=== PATIENT | female | born 1965 ===

== ENCOUNTER 2016-09-03 11:46 | Emergency (ER) | payer OTHER ==
[2016-09-03 11:55] VITALS: BMI 36.7
[2016-09-03 11:56] VITALS: BP 148/83; PULSE 64; RESP 18; TEMP 98; O2SAT 99
== END 2016-09-03 13:47 | disposition left against medical advice (07) ==
LOC: C.ER 11:46
DX: R11.10 Vomiting, unspecified (principal); R51 Headache; Z02.9 Encounter for administrative examinations, unspecified
CPT/HCPCS: 99285; LWBS0

== ENCOUNTER 2016-11-03 17:53 | Emergency (ER) | payer OTHER, MEDICAID ==
[2016-11-03 18:01] VITALS: BMI 35.3
[2016-11-03] MEDS ORDERED: Oxycodone/Acetaminophen 5/325 mg Tab PO STA (19:28)
[2016-11-03] MEDS ORDERED: Oxycodone/Acetaminophen 5/325 mg Tab ONE (19:33)
[2016-11-03 19:42] LABS: SQUAMOUS EPITHIAL 1 /hpf (0-5); URINE BACTERIA MOD (<OCC); URINE BILIRUBIN NEGATIVE (NEGATIVE); URINE BLOOD NEGATIVE (NEGATIVE); URINE CLARITY Hazy (Clear); URINE COLOR Yellow (YELLOW); URINE GLUCOSE (UA) NORMAL (Normal); URINE LEUKOCYTE ESTERASE 3+ Leu/uL (Negative); URINE NITRATE NEGATIVE (NEGATIVE); URINE PROTEIN NEGATIVE (NEGATIVE); URINE UROBILINOGEN NORMAL mg/dL (0.2-1.0)
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
[2016-11-03 21:00] VITALS: BP 112/70; PULSE 53; RESP 18; TEMP 97.4
[2016-11-03 21:47] VITALS: O2SAT 100
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
== END 2016-11-03 22:28 | disposition home or self-care (01) ==
LOC: C.ER 17:53
DX: N39.0 Urinary tract infection, site not specified (principal); S39.011D Strain of muscle, fascia and tendon of abdomen, subsequent encounter; V89.2XXD Person injured in unspecified motor-vehicle accident, traffic, subsequent encounter

== ENCOUNTER 2017-04-11 11:02 | Inpatient (IN) | payer OTHER ==
[2017-04-11 11:02] VITALS: BMI 35.3
[2017-04-11] MEDS ORDERED: Aspirin 325 mg EC Tablets PO STA (12:04)
[2017-04-11] MEDS ORDERED: Aspirin 325 mg EC Tablets PO ONE (12:11)
[2017-04-11 12:28] LABS: BASO # 0.1 K/uL (0.0-0.2); EOS # 0.1 K/uL (0.0-0.7); EOS % 1.2 % (0.0-4.0); HEMATOCRIT 36.5 % (34.0-47.0); LYMPH % 29.4 % (20.0-40.0); MEAN CELL VOLUME 87.5 fL (81.0-99.0); MEAN CORPUSCULAR HEMOGLOBIN 29.1 pg (27.0-31.0); MEAN CORPUSCULAR HGB CONC 33.3 g/dL (33.0-37.0); MEAN PLATELET VOLUME 10.1 fL (7.2-11.7); MONO # 0.6 K/uL (0.0-0.8); MONO % 5.8 % (0.0-10.0); NRBC % 0.1 % (0.0-2.0); RED CELL DISTRIBUTION WIDTH 13.1 % (11.5-14.5); WHITE BLOOD COUNT 10.2 K/uL (4.8-10.8)
--- NOTE | 2017-04-11 13:24 | RAD ---
Chest x-ray single frontal view History: Chest pain. Comparison: 01/11/2016 Findings: No focal infiltrate or effusion. Heart size within normal limits. Degenerative changes spine. Impression: No focal infiltrate or effusion.
[2017-04-11 13:48] LABS: RBC URINE 2 /hpf (0-3); URINE BACTERIA MANY (<OCC); URINE BILIRUBIN NEGATIVE (NEGATIVE); URINE BLOOD NEGATIVE (NEGATIVE); URINE COLOR Yellow (YELLOW); URINE GLUCOSE (UA) NORMAL (Normal); URINE KETONE NEGATIVE (NEGATIVE); URINE LEUKOCYTE ESTERASE 2+ Leu/uL (Negative); URINE PROTEIN NEGATIVE (NEGATIVE); URINE UROBILINOGEN NORMAL mg/dL (0.2-1.0); WBC URINE 104 /hpf (0-5)
[2017-04-11 14:06] LABS: ALB/GLOB RATIO 0.9 (1.0-2.1); ALKALINE PHOSPHATASE 68 U/L (38-126); ALT/SGPT 30 U/L (9-52); AST/SGOT 25 U/L (14-36); BILIRUBIN,TOTAL 0.4 mg/dL (0.2-1.3); BLOOD UREA NITROGEN 36 mg/dL (7-17); CALCIUM 8.8 mg/dl (8.6-10.4); CARBON DIOXIDE 25 mmol/L (22-30); CHLORIDE 106 mmol/L (98-107); GFR AFRICAN-AMERICAN 28; GLUCOSE,RANDOM 111 mg/dL (65-105); POTASSIUM 4.6 mmol/L (3.6-5.2); SODIUM 139 mmol/L (132-148); TOTAL PROTEIN 7.9 g/dL (6.3-8.3)
[2017-04-11] MEDS ORDERED: Sodium Chloride 0.9% 1,000 ML IV ONE (14:19)
[2017-04-11] MEDS ORDERED: cefTRIAXone IV 1 gm in Dextros 50 ML IV ONE (14:20)
--- NOTE | 2017-04-11 14:34 | C.PDOC ---
History Of Present Illness 51 year old female with a PMHx of HTN and Diabetes presents to the ED with complaints of left sided chest pain for 3 days. Patient reports pain is worse with movement. (+) dysuria (+) urinary frequency (+) h/o UTI frequently. Patient denies trauma, weakness, numbness, shortness of breath, radiation of pain, or other complaints at this time. Time Seen by Provider: 04/11/17 11:35 Chief Complaint (Nursing): Chest Pain History Per: Patient History/Exam Limitations: no limitations Onset/Duration Of Symptoms: Days (3 days) Current Symptoms Are (Timing): Still Present Quality: "Pain" Associated Symptoms: denies: Nausea, Dyspnea, Diaphoresis, Syncope Exacerbating Factors: Movement Recent travel outside of the [place]: No Past Medical History Reviewed: Historical Data, Nursing Documentation, Vital Signs Vital Signs: Last Vital Signs Temp 97.3 F L 04/11/17 18:07 Pulse 76 04/11/17 18:07 Resp 20 04/11/17 18:07 BP 135/86 04/11/17 18:07 Pulse Ox 96 04/11/17 18:07 - Medical History PMH: Diabetes, Graves' Disease, HTN, Hypercholesterolemia, Hyperthyroidism, Osteoporosis, Chronic Kidney Disease Surgical History: Appendectomy - [facility] Procedures CYSTOSCOPY NEC (03/25/04) INJECT/INFUSE ELECTROLYT (12/28/13) INJECT/INFUSE NEC (12/28/13) NEBULIZER THERAPY (12/28/13) URETERAL CATHETERIZATION (03/25/04) Family History: States: Unknown Family Hx - Social History Hx Tobacco Use: No Hx Alcohol Use: No Hx Substance Use: No - Immunization History Hx Tetanus Toxoid Vaccination: Yes Hx Influenza Vaccination: Yes Hx Pneumococcal Vaccination: Yes Review Of Systems Constitutional: Negative for: Fever, Chills Cardiovascular: Positive for: Chest Pain. Negative for: Palpitations Respiratory: Negative for: Cough, Shortness of Breath Gastrointestinal: Negative for: Nausea, Vomiting, Abdominal Pain Neurological: Negative for: Weakness, Numbness Physical Exam - Physical Exam Appears: Non-toxic, No Acute Distress Skin: Warm, Dry, No Rash Head: Atraumatic, Normacephalic, No Tenderness Eye(s): bilateral: Normal Inspection, PERRL, EOMI Nose: Normal Oral Mucosa: Moist Neck: Normal ROM, Supple Chest: Symmetrical, No Deformity, Other (reproducible chest pain with palpation) Cardiovascular: Rhythm Regular, No Murmur Respiratory: No Rales, No Rhonchi, No Wheezing, Other (clear to auscultation bilaterally ) Gastrointestinal/Abdominal: Soft, No Tenderness, No Distention, No Guarding, No Rebound Extremity: Normal ROM, No Tenderness Neurological/Psych: Oriented x3 ED Course And Treatment - Laboratory Results Result Diagrams: 04/11/17 12:24 04/11/17 13:24 ECG: Interpreted By Me, Viewed By Me ECG Rhythm: Sinus Rhythm Rate From EC O2 Sat by Pulse Oximetry: 100 (RA) Pulse Ox Interpretation: Normal Progress Note: EKG, CXR, blood work and labs were ordered. Case was discussed with Dr. Sy who agrees with plan and admission to his services. Disposition - Disposition Disposition: HOSPITALIZED Disposition Time: 18:00 Condition: STABLE - Clinical Impression Clinical Impression: Chest pain, UTI (urinary tract infection), Dehydration, Renal insufficiency - PA / ACCOUNT SERVICES REPRESENTATIVE / Resident Statement MD/DO has reviewed & agrees with the documentation as recorded. - Scribe Statement The provider has reviewed the documentation as recorded by the Scribe Nila Kelly All medical record entries made by the Jama were at my direction and personally dictated by me. I have reviewed the chart and agree that the record accurately reflects my personal performance of the history, physical exam, medical decision making, and the department course for this patient. I have also personally directed, reviewed, and agree with the discharge instructions and disposition.
[2017-04-11] MEDS ORDERED: cefTRIAXone IV 1 gm in Dextros 50 ML IVPB ONE (14:48)
[2017-04-11 18:08] VITALS: RESP 20
[2017-04-11] MEDS ORDERED: Dextrose 5%/0.9% NS 1,000 ML IV ONE (20:24)
--- NOTE | 2017-04-11 20:28 | CP.PCM.HP ---
History of Present Illness - History of Present Illness History of Present Illness: Chief comparison: Left-sided chest pain History of present illness: 51-year-old female with a history of diabetes hypertension renal insufficiency hypercholesteremia recurrent urinary tract infection came to the emergency room with the symptoms of pain of the left-sided chest, almost one-week duration. Patient is having diffuse pain over the left inframammary area, sometimes radiating to the left axillary area. She is also complaining of diffuse pain in the lower back, bilateral legs. She is also combining of left flank pain. Urinary discomfort burning sensation noted. Chills and feverish. Nausea noted. But no vomiting. Patient the past had multiple hospitalization with recurrent urinary tract infection also. Past medical history: Patient has a history of hypertension diabetes hypercholesterolemia renal insufficiency diabetes poorly controlled. Patient also has some worsening renal insufficiency. Venous history. Surgical history none Allergies no drug allergy Personal history: Nonsmoker nonalcoholic, very noncompliance with diet, and medications. Depression also noted. Review of systems: Currently having some dizziness, some headache noted. Denies any nausea now. Headache noted. Complaining of left-sided inframammary pain noted. Abdominal pain noted. Left flank pain noted. Vital signs reviewed No neck vein distention noted Chest good air entry bilaterally, no wheezing or rales noted CVS regular heart sound, no murmur noted Left inframammary tenderness noted over the rib involving possibly the fifth and sixth rib. No redness or swelling noted, no trauma Left flank tenderness noted Abdomen soft, nontender. Extremities no pedal edema FELLER HAND alert awake oriented -3, no functional neurological deficit Patient's labs reviewed Patient's initial blood sugar is on the low side. Chest x-ray nonspecific. EKG nonspecific Assessment and recommendation: 51-year-old female with history of diabetes hypertension hypercholesterolemia renal insufficiency polycystic kidney. Patient also admitted with recurrent urinary tract infection. Currently admitted with urosepsis. Left-sided chest pain, nonspecific, reproducible. Underlying the fracture cannot be ruled out, will get a CT of the chest. Prognosis guarded. Continue to monitor. IV fluid. Computed the renal sonogram and will follow the patient Present on Admission - Present on Admission Any Indicators Present on Admission: No History of DVT/PE: No History of Uncontrolled Diabetes: No Urinary Catheter: No Decubitus Ulcer Present: No Past Patient History - Infectious Disease Hx of Infectious Diseases: None - Tetanus Immunizations Tetanus Immunization: Unknown - Past Medical History & Family History Past Medical History?: Yes - Past Social History Smoking Status: Never Smoked - CARDIAC Hx Hypercholesterolemia: Yes Hx Hypertension: Yes - PULMONARY Hx Respiratory Disorders: No - NEUROLOGICAL Hx Neurological Disorder: No - HEENT Hx HEENT Problems: No - RENAL Hx Chronic Kidney Disease: Yes - ENDOCRINE/METABOLIC Hx Hyperthyroidism: Yes - HEMATOLOGICAL/ONCOLOGICAL Hx Blood Disorders: No - INTEGUMENTARY Hx Dermatological Problems: No - MUSCULOSKELETAL/RHEUMATOLOGICAL Hx Falls: No Hx Osteoporosis: Yes - GASTROINTESTINAL Hx Gastrointestinal Disorders: No - GENITOURINARY/GYNECOLOGICAL Hx Genitourinary Disorders: No - PSYCHIATRIC Hx Substance Use: No - SURGICAL HISTORY Hx Appendectomy: Yes - ANESTHESIA Hx Anesthesia: Yes Hx Anesthesia Reactions: No Hx Malignant Hyperthermia: No Meds Allergies/Adverse Reactions: Allergies Allergy/AdvReac Type Severity Reaction Status Date / Time No Known Allergies Allergy Verified 04/11/17 11:05 Results - Vital Signs Recent Vital Signs: Last Vital Signs Temp 97.3 F L 04/11/17 18:07 Pulse 76 04/11/17 18:36 Resp 20 04/11/17 18:07 BP 135/86 04/11/17 18:07 Pulse Ox 100 04/11/17 18:16 - Labs Result Diagrams: 04/12/17 04:12 04/12/17 04:12 Labs: Laboratory Results - last 24 hr 04/11/17 04/11/17 04/11/17 12:24 13:24 13:24 WBC 10.2 RBC 4.17 Hgb 12.1 Hct 36.5 MCV 87.5 MCH 29.1 MCHC 33.3 RDW 13.1 Plt Count 194 MPV 10.1 Neut % (Auto) 62.6 Lymph % (Auto) 29.4 [place] % (Auto) 5.8 Eos % (Auto) 1.2 Baso % (Auto) 1.0 Neut # 6.4 Lymph # 3.0 [place] # 0.6 Eos # 0.1 Baso # 0.1 Sodium 139 Potassium 4.6 Chloride 106 Carbon Dioxide 25 Anion Gap 12 BUN 36 H Creatinine 2.2 H Est GFR ( Amer) 28 Est GFR (Non-Af Amer) 24 POC Glucose (mg/dL) Random Glucose 111 H Calcium 8.8 Total Bilirubin 0.4 AST 25 ALT 30 Alkaline Phosphatase 68 Troponin I < 0.0120 NT-Pro-B Natriuret Pep 62.3 Total Protein 7.9 Albumin 3.8 Globulin 4.1 H Albumin/Globulin Ratio 0.9 L Urine Color Yellow Urine Clarity Hazy Urine pH 5.0 Ur Specific [place] 1.011 Urine Protein Negative Urine Glucose (UA) Normal Urine Ketones Negative Urine Blood Negative Urine Nitrate Negative Urine Bilirubin Negative Urine Urobilinogen Normal Ur Leukocyte Esterase 2+ H Urine WBC (Auto) 104 H Urine RBC (Auto) 2 Ur Squamous Epith Cells 4 Urine Bacteria Many H 04/11/17 04/11/17 04/11/17 17:00 17:02 17:32 WBC RBC Hgb Hct MCV MCH MCHC RDW Plt Count MPV Neut % (Auto) Lymph % (Auto) [place] % (Auto) Eos % (Auto) Baso % (Auto) Neut # Lymph # [place] # Eos # Baso # Sodium Potassium Chloride Carbon Dioxide Anion Gap BUN Creatinine Est GFR ( Amer) Est GFR (Non-Af Amer) POC Glucose (mg/dL) 47 L 47 L 74 Random Glucose Calcium Total Bilirubin AST ALT Alkaline Phosphatase Troponin I NT-Pro-B Natriuret Pep Total Protein Albumin Globulin Albumin/Globulin Ratio Urine Color Urine Clarity Urine pH Ur Specific [place] Urine Protein Urine Glucose (UA) Urine Ketones Urine Blood Urine Nitrate Urine Bilirubin Urine Urobilinogen Ur Leukocyte Esterase Urine WBC (Auto) Urine RBC (Auto) Ur Squamous Epith Cells Urine Bacteria
[2017-04-12 04:31] LABS: BASO # 0.1 K/uL (0.0-0.2); EOS # 0.2 K/uL (0.0-0.7); EOS % 2.1 % (0.0-4.0); HEMATOCRIT 36.4 % (34.0-47.0); LYMPH # 3.4 K/uL (1.0-4.3); LYMPH % 39.5 % (20.0-40.0); MEAN CELL VOLUME 86.9 fL (81.0-99.0); MEAN CORPUSCULAR HEMOGLOBIN 28.9 pg (27.0-31.0); MEAN CORPUSCULAR HGB CONC 33.3 g/dL (33.0-37.0); MEAN PLATELET VOLUME 9.8 fL (7.2-11.7); MONO # 0.6 K/uL (0.0-0.8); MONO % 6.4 % (0.0-10.0); RED CELL DISTRIBUTION WIDTH 12.9 % (11.5-14.5); WHITE BLOOD COUNT 8.6 K/uL (4.8-10.8)
[2017-04-12 04:52] LABS: ALB/GLOB RATIO 0.9 (1.0-2.1); ALKALINE PHOSPHATASE 67 U/L (38-126); ALT/SGPT 39 U/L (9-52); AST/SGOT 21 U/L (14-36); BILIRUBIN,TOTAL 0.3 mg/dL (0.2-1.3); BLOOD UREA NITROGEN 31 mg/dL (7-17); CALCIUM 8.5 mg/dl (8.6-10.4); CARBON DIOXIDE 25 mmol/L (22-30); CHLORIDE 105 mmol/L (98-107); GFR AFRICAN-AMERICAN 32; GLUCOSE,RANDOM 83 mg/dL (65-105); POTASSIUM 4.1 mmol/L (3.6-5.2); SODIUM 136 mmol/L (132-148); TOTAL PROTEIN 7.6 g/dL (6.3-8.3)
--- NOTE | 2017-04-12 13:15 | CT ---
CT chest without IV contrast Indication: Fracture Technique: Contiguous axial images were obtained through the chest without intravenous contrast enhancement. Sagittal and coronal reconstructions were generated and reviewed. This CT exam was performed using 1 or more of the falling dose reduction techniques: Automated exposure control, adjustment of the MAA and/or kV according to patient size, and/or use of iterative reconstruction technique. Radiation dose (DLP): 807.63 MGy-cm. Comparison: Chest x-ray performed 04/11/17, CT of the abdomen and pelvis without contrast performed 11/03/16 Findings: Visualized portions of the inferior thyroid gland appear unremarkable. The unenhanced mediastinal and hilar vascular structures appear grossly unremarkable. The heart appears within normal limits of size. No focal consolidation. No pleural effusion. No pneumothorax. No suspicious pulmonary nodules measuring greater than 5 mm. Limited visualization of the noncontrast upper abdomen demonstrates multiple bilateral probable renal cysts. Small right hyperdense lesion re-identified. Nonobstructing left renal calculus. Irregularities about the right posterior 9th and 10th ribs appear consistent with nondisplaced fractures ; correlate clinically. Impression: Irregularities about the right posterior 9th and 10th ribs appear consistent with nondisplaced fractures ; correlate clinically. Multiple bilateral probable renal cysts. Additional too small to characterize bilateral renal hypodensities ; statistically likely cysts. Small indeterminate right hyperdense lesion re-identified. Nonobstructing left renal calculus.
--- NOTE | 2017-04-12 18:04 | CARD ---
APPROVED REPORT EXAM: Two-dimensional and M-mode echocardiogram with Doppler and color Doppler. Other Information Quality : GoodRhythm : NSR INDICATION CVA/TIA Chest Pain RISK FACTORS Diabetes 2D DIMENSIONS IVSd0.7 (0.7-1.1cm)LVDd4.3 (3.9-5.9cm) PWd0.9 (0.7-1.1cm)LVDs3.2 (2.5-4.0cm) FS (%) 26.5 %LVEF (%)52.1 (>50%) M-Mode DIMENSIONS RVDd2.00 (2.1-3.2cm)Left Atrium (MM)4.07 (2.5-4.0cm) IVSd0.97 (0.7-1.1cm)Aortic Root3.01 (2.2-3.7cm) LVDd4.74 (4.0-5.6cm)Aortic Cusp Exc.2.03 (1.5-2.0cm) PWd1.03 (0.7-1.1cm)FS (%) 26 % LVDs3.49 (2.0-3.8cm)LVEF (%)51 (>50%) Mitral Valve MV E Xoymjspp52.5cm/sMV A Durdcxfu37.7cm/sE/A ratio0.7 TDI E/Lateral E'0.0E/Medial E'0.0 Tricuspid Valve TR Peak Etchxwpf744lb/sTR Peak Gr.[id number] LEFT VENTRICLE The left ventricle is normal size. There is normal left ventricular wall thickness. The left ventricular function is normal. The left ventricular ejection fraction is within the normal range. about 65% No regional wall motion abnormalities noted. The left ventricular diastolic function is indeterminate No left ventricle thrombus noted on this study. There is no ventricular septal defect visualized. There is no left ventricular aneurysm. There is no mass noted in the left ventricle. RIGHT VENTRICLE The right ventricle is normal size. There is normal right ventricular wall thickness. The right ventricular systolic function is normal. ATRIA The left atrium size is normal. The right atrium size is normal. The interatrial septum is intact with no evidence for an atrial septal defect. AORTIC VALVE The aortic valve is normal in structure and function. No aortic regurgitation is present. There is no aortic valvular stenosis. There is no aortic valvular vegetation. MITRAL VALVE The mitral valve is normal in structure and function. There is no evidence of mitral valve prolapse. There is no mitral valve stenosis. There is no mitral valve regurgitation noted. TRICUSPID VALVE The tricuspid valve is normal in structure and function. There is no tricuspid valve regurgitation noted. There is no tricuspid valve prolapse or vegetation. There is no tricuspid valve stenosis. PULMONIC VALVE The pulmonary valve is normal in structure and function. There is no pulmonic valvular regurgitation. There is no pulmonic valvular stenosis. GREAT VESSELS The aortic root is normal in size. The ascending aorta is normal in size. The pulmonary artery is normal. The IVC is normal in size and collapses >50% with inspiration. PERICARDIAL EFFUSION The pericardium appears normal. There is no pleural effusion. <Conclusion> Normal left ventricualr systolic function. Normal Doppler.
--- NOTE | 2017-04-12 18:30 | CARD ---
APPROVED REPORT EKG Measurement Heart [id number] <Conclusion> Normal sinus rhythm Normal ECG
--- NOTE | 2017-04-12 23:25 | CP.PCM.PN ---
Subjective - Date & Time of Evaluation Date of Evaluation: 04/12/17 Time of Evaluation: 23:24 - Subjective Subjective: Patient is still having the pain over the left lower rib cage region. Severe tenderness noted. Sugar is elevated. Blood pressure is elevated. No nausea vomiting, feeling otherwise okay Vital signs reviewed No neck vein distention noted Chest good air entry bilaterally, no wheezing or rales noted CVS regular heart sound, no murmur noted Abdomen soft, nontender. Extremities no pedal edema OIL GAUGER alert awake oriented -3, no functional neurological deficit CT of the chest showing evidence of nondisplaced fracture involving the ninth and 10th rib but it's on the right side. Patient has a symptoms on the left side. Assessment compression: 51-year-old female admitted to the hospital with left-sided hip cage pain. Likely contusion of the chest. Refracture likely. No treatment. Supportive care. Glucose control. With the renal sonogram tomorrow. Patient can be discharged home after that Objective - Vital Signs/Intake and Output Vital Signs (last 24 hours): Temp Pulse Resp BP Pulse Ox 98.1 F 64 20 123/73 96 04/12/17 15:00 04/12/17 16:21 04/12/17 15:00 04/12/17 15:00 04/12/17 15:00 - Medications Medications: Current Medications Heparin Sodium (Porcine) (Heparin) 5,000 units SC Q8 [facility] Last Admin: 04/12/17 21:06 Dose: 5,000 units Ceftriaxone Sodium 1 gm/ (Dextrose) 100 mls @ 100 mls/hr IVPB DAILY [facility] Last Admin: 04/12/17 10:42 Dose: 100 mls/hr Pantoprazole Sodium (Protonix Inj) 40 mg IVP DAILY [facility] Last Admin: 04/12/17 10:42 Dose: 40 mg - Labs Labs: 04/12/17 04:12 04/12/17 04:12
[2017-04-13] MEDS ORDERED: GlipiZIDE 2.5 mg Tab PO SCH (07:30)
--- NOTE | 2017-04-13 13:46 | US ---
PROCEDURE: Ultrasound of the Kidneys HISTORY: polycystic kidney COMPARISON: None available. TECHNIQUE: Sonogram of the kidneys. FINDINGS: RIGHT KIDNEY: Measures: 12.0 cm. Diffusely increased cortical echogenicity. Multiple cysts consistent with known polycystic kidney disease. No solid mass. Upper pole cyst with thin septation versus adjacent smaller cyst, 4.7 x 4.2 x 4.0 cm. Lower pole cyst, 2.6 x 3.1 x 2.7 cm. No calculus or hydronephrosis. LEFT KIDNEY: Measures: 10.7 cm. Diffusely increased cortical echogenicity. Multiple simple cysts. Upper pole cyst, 3.2 x 3.4 x 3.4 cm. No solid mass. Please note that left lower pole renal calculus on CT examination of 11/03/2016 is not identified on this examination. No hydronephrosis. OTHER FINDINGS: None. IMPRESSION: Findings consistent with known polycystic kidney disease. No suspicious mass. Calculus in lower pole on CT examination of 11/03/2016 is not identified.
[2017-04-13 16:27] VITALS: BP 115/75; PULSE 67; TEMP 98; O2SAT 98
== END 2017-04-13 22:34 | disposition home or self-care (01) | DRG 280 ==
LOC: C.ER 11:02 → C.9E 14:20 → OBSVTOIN 14:20 → C.6T 16:39
PROVIDERS: ADMIT Internal Medicine; ATTEND Internal Medicine
DX: S20.219A Contusion of unspecified front wall of thorax, initial encounter (principal); E05.90 Thyrotoxicosis, unspecified without thyrotoxic crisis or storm; E11.22 Type 2 diabetes mellitus with diabetic chronic kidney disease; E11.65 Type 2 diabetes mellitus with hyperglycemia; N39.0 Urinary tract infection, site not specified; E86.0 Dehydration; N18.9 Chronic kidney disease, unspecified; E05.00 Thyrotoxicosis with diffuse goiter without thyrotoxic crisis or storm; Z91.11 Patient's noncompliance with dietary regimen; I12.9 Hypertensive chronic kidney disease with stage 1 through stage 4 chronic kidney disease, or unspecified chronic kidney disease; X58.XXXA Exposure to other specified factors, initial encounter

== ENCOUNTER 2017-09-29 18:14 | Inpatient (IN) | payer MEDICAID, OTHER ==
[2017-09-29 18:14] VITALS: BMI 35.3
[2017-09-29] MEDS ORDERED: Sodium Chloride 0.9% 1,000 ML IV STA (19:39)
--- NOTE | 2017-09-29 19:42 | C.PDOC ---
History Of Present Illness Patient is a 51 y/o female, with a Hx of arthritis, who presents to the ED with a complaint of right sided back pain for the last 5 days. Per daughter, patient was seen at [facility] 2 days ago and was discharged with Tylenol for muscular pain. Daughter states pain persists, prompting ED visit. Daughter denies any dysuria, vomiting, or allergies to medications. No other physical complaints at this time. 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) History/Exam Limitations: no limitations Onset/Duration Of Symptoms: Days (5 ) Current Symptoms Are (Timing): Still Present Exacerbating Factor(s): Movement Recent travel outside of the [place]: No Past Medical History Reviewed: Historical Data, Nursing Documentation, Vital Signs Vital Signs: Last Vital Signs Temp 97.8 F 09/29/17 22:01 Pulse 55 L 09/29/17 22:01 Resp 18 09/29/17 22:01 BP 147/83 09/29/17 22:01 Pulse Ox 99 09/29/17 22:28 - Medical History PMH: Arthritis, Diabetes, Graves' Disease, HTN, Hypercholesterolemia, Hyperthyroidism, Osteoporosis, Chronic Kidney Disease Denies: Depression Surgical History: Appendectomy - [facility] Procedures CYSTOSCOPY NEC (03/25/04) INJECT/INFUSE ELECTROLYT (12/28/13) INJECT/INFUSE NEC (12/28/13) NEBULIZER THERAPY (12/28/13) URETERAL CATHETERIZATION (03/25/04) Family History: States: No Known Family Hx - Social History Hx Tobacco Use: No Hx Alcohol Use: No Hx Substance Use: No - Immunization History Hx Tetanus Toxoid Vaccination: Yes Hx Influenza Vaccination: Yes Hx Pneumococcal Vaccination: Yes Review Of Systems Except As Marked, All Systems Reviewed And Found Negative. Gastrointestinal: Negative for: Nausea, Vomiting Musculoskeletal: Positive for: Back Pain (right sided) Physical Exam - Physical Exam Additional Physical Exam Comments: Constitutional: No acute distress. Head: Normocephalic. Atraumatic. Eyes: PERRL. ENT: Moist mucous membranes. Neck: Supple. Cardiovascular: Regular rate. Radial pulse 2+ bilaterally. Chest: No tenderness. Respiratory: Clear to auscultation bilaterally. GI: Soft. Right-sided abdominal tenderness. No rebound or guarding. Back: Right-sided CVA tenderness. Musculoskeletal: No tenderness or swelling of extremities. Skin: No rash. Neurologic: Alert, no focal deficit. ED Course And Treatment - Laboratory Results Result Diagrams: 09/29/17 20:03 09/29/17 20:03 O2 Sat by Pulse Oximetry: 99 Progress Note: CT abdomen/pelvis, blood work, UA, and HCG urine ordered. Toradol and IV fluids administered. Medical Decision Making Medical Decision Making: CT abdomen/pelvis W IV contrast: IMPRESSION: - Biliary ductal dilatation, cause not identified. Recommend correlation with LFTs for laboratory evidence of biliary obstruction, and further workup as indicated, such as with right upper quadrant ultrasound. - Otherwise, no evidence of significant acute process. - Tiny gallstone. No CT evidence of acute cholecystitis. - Innumerable, bilateral cystic renal lesions, compatible with polycystic kidney disease. - See above for remaining findings. UA shows mild UTI. Mild leukocytosis. Initiated antibiotics. Dr. Quezada will consult GI, accepts patient to medical service. Disposition - Disposition Disposition: HOSPITALIZED Disposition Time: 22:27 Condition: FAIR - Clinical Impression Clinical Impression: UTI (urinary tract infection), Common bile duct dilatation - Scribe Statement The provider has reviewed the documentation as recorded by the Scribe Corrine Rodriguez All medical record entries made by the Scribe were at my direction and personally dictated by me. I have reviewed the chart and agree that the record accurately reflects my personal performance of the history, physical exam, medical decision making, and the department course for this patient. I have also personally directed, reviewed, and agree with the discharge instructions and disposition.
[2017-09-29] MEDS ORDERED: Sodium Chloride 0.9% 1,000 ML ONE (19:58)
[2017-09-29 20:06] LABS: BASO # 0.2 K/uL (0.0-0.2); BASO % 1.3 % (0.0-2.0); EOS # 0.3 K/uL (0.0-0.7); EOS % 2.8 % (0.0-4.0); LYMPH # 4.2 K/uL (1.0-4.3); LYMPH % 35.8 % (20.0-40.0); MEAN CELL VOLUME 88.1 fL (81.0-99.0); MEAN CORPUSCULAR HEMOGLOBIN 29.1 pg (27.0-31.0); MEAN PLATELET VOLUME 10.1 fL (7.2-11.7); MONO # 0.6 K/uL (0.0-0.8); MONO % 5.4 % (0.0-10.0); NEUT # 6.5 K/uL (1.8-7.0); NEUT % 54.7 % (50.0-75.0); NRBC % 0.1 % (0.0-2.0); RBC 4.12 Mil/uL (3.80-5.20); RED CELL DISTRIBUTION WIDTH 12.8 % (11.5-14.5); WHITE BLOOD COUNT 11.9 K/uL (4.8-10.8)
[2017-09-29 20:09] LABS: HCG,QUALITATIVE URINE NEGATIVE (NEGATIVE)
[2017-09-29 20:12] LABS: SQUAMOUS EPITHIAL 1 /hpf (0-5); URINE BACTERIA FEW (<OCC); URINE BILIRUBIN NEGATIVE (NEGATIVE); URINE BLOOD NEGATIVE (NEGATIVE); URINE CLARITY Clear (Clear); URINE COLOR Yellow (YELLOW); URINE GLUCOSE (UA) 3+ mg/dL (Normal); URINE LEUKOCYTE ESTERASE TRACE Leu/uL (Negative); URINE PROTEIN NEGATIVE (NEGATIVE); URINE UROBILINOGEN NORMAL mg/dL (0.2-1.0)
[2017-09-29 20:18] LABS: ALB/GLOB RATIO 1.1 (1.0-2.1); ALBUMIN 3.6 g/dL (3.5-5.0); CALCIUM 8.6 mg/dl (8.6-10.4)
[2017-09-29] MEDS ORDERED: Iodixanol 320 MG/ML 100 ML BOTTLE IV ONE (20:50)
--- NOTE | 2017-09-29 22:26 | CT ---
EXAM: CT Abdomen and Pelvis With Intravenous Contrast EXAM DATE/TIME: 09/29/2017 7:39 PM CLINICAL HISTORY: 51 years old, female; Pain; Other: Right kidney pain; Patient HX: Fatty liver; Additional info: R sided abdominal pain TECHNIQUE: Axial computed tomography images of the abdomen and pelvis with intravenous contrast. All CT scans at this facility use one or more dose reduction techniques, viz.: automated exposure control; ma/kV adjustment per patient size (including targeted exams where dose is matched to indication; i.e. head); or iterative reconstruction technique. Coronal and sagittal reformatted images were created and reviewed. CONTRAST: 100 mL of VISIPAQUE administered intravenously. COMPARISON: Prior CT abdomen and pelvis of 2016-11-03 FINDINGS: LIMITATIONS: Mild to moderate streak/motion artifact. LUNG BASES: No significant abnormality seen. ABDOMEN: LIVER: Mild fatty infiltration of the liver. GALLBLADDER AND BILE DUCTS: Biliary ductal dilatation. The common bile duct measures 1 cm maximally. No cause for this finding is seen. Tiny gallstone. The gallbladder appears contracted. No CT evidence of acute cholecystitis. PANCREAS: Pancreatic duct is top normal in size, measuring 3 mm in diameter. No CT evidence of acute pancreatitis. No pancreatic mass is visualized. SPLEEN: No acute abnormality of the spleen identified. ADRENALS: No acute abnormality of the adrenal glands identified. KIDNEYS AND URETERS: Again seen in the kidneys bilaterally are innumerable low-density lesions of varying sizes, most compatible with extensive, bilateral renal cysts. The largest of these is located in right kidney upper pole and measures 4.5 cm. The kidneys are normal in size. The right kidney is mildly larger than the left, the 10 cm in length, unchanged from the prior exam. No evidence of hydroureteronephrosis. No obstructing stones are seen. No evidence of perinephric hemorrhage or perinephric fluid collections. STOMACH AND BOWEL: No definite acute abnormality of the bowel is seen, allowing for motion artifact. No evidence of bowel obstruction. No acute abnormality of the stomach or duodenum identified. PELVIS: APPENDIX: Appendix is seen, and is within normal limits in appearance. BLADDER: No acute abnormality of the bladder identified. REPRODUCTIVE:No acute abnormality of the reproductive organs is seen. No acute abnormality of the uterus identified. No evidence of large adnexal masses. ABDOMEN and PELVIS: INTRAPERITONEAL SPACE: No evidence of free intraperitoneal air or fluid. BONES/JOINTS: Bony structures appear demineralized. SOFT TISSUES: Small umbilical hernia, containing only fat. VASCULATURE: No evidence of abdominal aortic aneurysm. No evidence of periaortic hemorrhage. LYMPH NODES: No evidence of diffuse lymphadenopathy. IMPRESSION: - Biliary ductal dilatation, cause not identified. Recommend correlation with LFTs for laboratory evidence of biliary obstruction, and further workup as indicated, such as with right upper quadrant ultrasound. - Otherwise, no evidence of significant acute process. - Tiny gallstone. No CT evidence of acute cholecystitis. - Innumerable, bilateral cystic renal lesions, compatible with polycystic kidney disease. - See above for remaining findings.
[2017-09-29] MEDS ORDERED: metroNIDAZOLE IV 500 mg/100 ml 500 MG/100 ML BAG IVPB STA (22:47)
[2017-09-29] MEDS ORDERED: Ciprofloxacin 400mg/200ml D5W 400 MG/200 ML BAG IVPB STA (22:47)
[2017-09-29] MEDS ORDERED: metroNIDAZOLE IV 500 mg/100 ml 500 MG/100 ML BAG ONE (23:23)
[2017-09-30] MEDS ORDERED: Ciprofloxacin 400mg/200ml D5W 400 MG/200 ML BAG IVPB ONE (00:29)
[2017-09-30 01:37] VITALS: RESP 20
[2017-09-30] MEDS: (Novolog) Insulin Aspart, Recombinant 100 u/ml 10 ml vial SC SCH ×4 (08:49→21:32)
--- NOTE | 2017-09-30 10:59 | CP.PCM.HP ---
History of Present Illness - History of Present Illness History of Present Illness: pt came in for flank pain upper abd pain and bone pain arthitis hx has been for one weeke progresive has urin infection hi lipas Present on Admission - Present on Admission Any Indicators Present on Admission: No Review of Systems - Review of Systems Systems not reviewed;Unavailable: Acuity of Condition - Constitutional Constitutional: Weakness - EENT Eyes: As Per HPI Ears: As Per HPI Nose/Mouth/Throat: As Per HPI - Breasts Breasts: As Per HPI - Cardiovascular Cardiovascular: As Per HPI - Respiratory Respiratory: As Per HPI - Gastrointestinal Gastrointestinal: As Per HPI, Abdominal Pain - Genitourinary Genitourinary: Flank Pain, Hematuria, Pyuria - Reproductive: Female Reproductive:Female: As Per HPI - Menstruation Menstruation: As Per HPI - Musculoskeletal Musculoskeletal: Arthralgias - Integumentary Integumentary: As Per HPI - Neurological Neurological: As Per HPI - Psychiatric Psychiatric: As Per HPI - Endocrine Endocrine: As Per HPI - Hematologic/Lymphatic Hematologic: As Per HPI Past Patient History - Infectious Disease Hx of Infectious Diseases: None - Tetanus Immunizations Tetanus Immunization: Unknown - Past Medical History & Family History Past Medical History?: Yes - Past Social History Smoking Status: Never Smoked - CARDIAC Hx Hypercholesterolemia: Yes Hx Hypertension: Yes - PULMONARY Hx Respiratory Disorders: No - NEUROLOGICAL Hx Neurological Disorder: No - HEENT Hx HEENT Problems: No - RENAL Hx Chronic Kidney Disease: Yes - ENDOCRINE/METABOLIC Hx Hyperthyroidism: Yes - HEMATOLOGICAL/ONCOLOGICAL Hx Blood Disorders: No - INTEGUMENTARY Hx Dermatological Problems: No - MUSCULOSKELETAL/RHEUMATOLOGICAL Hx Falls: No - GASTROINTESTINAL Hx Gastrointestinal Disorders: No - GENITOURINARY/GYNECOLOGICAL Hx Genitourinary Disorders: No - PSYCHIATRIC Hx Substance Use: No - SURGICAL HISTORY Hx Appendectomy: Yes - ANESTHESIA Hx Anesthesia: Yes Hx Anesthesia Reactions: No Hx Malignant Hyperthermia: No Meds Allergies/Adverse Reactions: Allergies Allergy/AdvReac Type Severity Reaction Status Date / Time No Known Allergies Allergy Verified 09/29/17 18:28 Physical Exam - Constitutional Appears: In Acute Distress - Head Exam Head Exam: ATRAUMATIC - Eye Exam Eye Exam: Normal appearance Pupil Exam: NORMAL ACCOMODATION - ENT Exam ENT Exam: Mucous Membranes Moist - Neck Exam Neck exam: Positive for: Full Rom - Respiratory Exam Respiratory Exam: Decreased Breath Sounds - Cardiovascular Exam Cardiovascular Exam: REGULAR RHYTHM - GI/Abdominal Exam GI & Abdominal Exam: Normal Bowel Sounds - Rectal Exam Rectal Exam: Deferred - Exam Exam: NORMAL INSPECTION - Extremities Exam Extremities exam: Positive for: normal inspection - Back Exam Back exam: NORMAL INSPECTION - Neurological Exam Neurological exam: Alert, Oriented x3 - Psychiatric Exam Psychiatric exam: Normal Affect - Skin Skin Exam: Normal Color Results - Vital Signs Recent Vital Signs: Last Vital Signs Temp 97.8 F 09/30/17 07:35 Pulse 61 09/30/17 10:11 Resp 20 09/30/17 07:35 BP 128/77 09/30/17 10:14 Pulse Ox 100 09/30/17 07:35 - Labs Result Diagrams: 09/29/17 20:03 09/29/17 20:03 Labs: Laboratory Results - last 24 hr 09/29/17 09/29/17 09/29/17 20:03 20:03 20:03 WBC 11.9 H RBC 4.12 Hgb 12.0 Hct 36.3 MCV 88.1 MCH 29.1 MCHC 33.0 RDW 12.8 Plt Count 213 MPV 10.1 Neut % (Auto) 54.7 Lymph % (Auto) 35.8 [place] % (Auto) 5.4 Eos % (Auto) 2.8 Baso % (Auto) 1.3 Neut # (Auto) 6.5 Lymph # (Auto) 4.2 [place] # (Auto) 0.6 Eos # (Auto) 0.3 Baso # (Auto) 0.2 Sodium 140 Potassium 4.8 Chloride 102 Carbon Dioxide 25 Anion Gap 18 BUN 25 H Creatinine 1.5 H Est GFR ( Amer) 44 Est GFR (Non-Af Amer) 37 POC Glucose (mg/dL) Random Glucose 206 H Calcium 8.6 Total Bilirubin 0.4 AST 32 ALT 31 Alkaline Phosphatase 92 Total Protein 6.9 Albumin 3.6 Globulin 3.3 Albumin/Globulin Ratio 1.1 Lipase 336 H Urine Color Yellow Urine Clarity Clear Urine pH 6.0 Ur Specific [place] 1.009 Urine Protein Negative Urine Glucose (UA) 3+ H Urine Ketones Negative Urine Blood Negative Urine Nitrate Negative Urine Bilirubin Negative Urine Urobilinogen Normal Ur Leukocyte Esterase Trace Urine WBC (Auto) 7 H Urine RBC (Auto) < 1 Ur Squamous Epith Cells 1 Urine Bacteria Few H Urine HCG, Qual Negative 09/30/17 09/30/17 00:15 08:27 WBC RBC Hgb Hct MCV MCH MCHC RDW Plt Count MPV Neut % (Auto) Lymph % (Auto) [place] % (Auto) Eos % (Auto) Baso % (Auto) Neut # (Auto) Lymph # (Auto) [place] # (Auto) Eos # (Auto) Baso # (Auto) Sodium Potassium Chloride Carbon Dioxide Anion Gap BUN Creatinine Est GFR ( Amer) Est GFR (Non-Af Amer) POC Glucose (mg/dL) 145 H 97 Random Glucose Calcium Total Bilirubin AST ALT Alkaline Phosphatase Total Protein Albumin Globulin Albumin/Globulin Ratio Lipase Urine Color Urine Clarity Urine pH Ur Specific [place] Urine Protein Urine Glucose (UA) Urine Ketones Urine Blood Urine Nitrate Urine Bilirubin Urine Urobilinogen Ur Leukocyte Esterase Urine WBC (Auto) Urine RBC (Auto) Ur Squamous Epith Cells Urine Bacteria Urine HCG, Qual Assessment & Plan - Assessment and Plan (Free Text) Assessment: abd pain pancreatitis bile duct stone uti Plan: as per orders - Date & Time Date: 09/30/17 Time: 11:08
[2017-09-30] MEDS ORDERED: Pneumococcal 23-Valent Vaccine IM ONE (11:46)
--- NOTE | 2017-09-30 11:46 | CP.PCM.CON ---
History of Present Illness - History of Present Illness History of Present Illness: SURGERY CONSULT NOTE FOR DR. MOFFETT 51F with a PMH of HTN, HLD, arthritis, diabetes, osteoporosis, kidney injury came to the ED yesterday with right ABD pain and flank pain of 5 days duration. The pain is not associated with eating, urination or defecation. She states the pain comes and goes, describes it as sharp. She currently feels well and reports of no complaints other than that she has noticed she is urinating more frequently. Her pain is well controlled and she is able to eat and use the bathroom without issue. PMH: HTN, HLD, arthritis, diabetes, osteoporosis,kidney injury PSH: Appendectomy Social: Denies alcohol, tobacco, drug use Allergies: No known allergies Review of Systems - Constitutional Constitutional: absent: Chills, Fever - Cardiovascular Cardiovascular: absent: Chest Pain, Edema, Palpitations - Respiratory Respiratory: absent: Dyspnea - Gastrointestinal Gastrointestinal: Abdominal Pain. absent: Change in Bowel Habits, Constipation , Diarrhea, Nausea, Vomiting - Genitourinary Genitourinary: Urinary Frequency. absent: Difficulty Urinating, Dysuria Past Patient History - Infectious Disease Hx of Infectious Diseases: None - Tetanus Immunizations Tetanus Immunization: Unknown - Past Medical History & Family History Past Medical History?: Yes - Past Social History Smoking Status: Never Smoked - CARDIAC Hx Hypercholesterolemia: Yes Hx Hypertension: Yes - PULMONARY Hx Respiratory Disorders: No - NEUROLOGICAL Hx Neurological Disorder: No - HEENT Hx HEENT Problems: No - RENAL Hx Chronic Kidney Disease: Yes - ENDOCRINE/METABOLIC Hx Hyperthyroidism: Yes - HEMATOLOGICAL/ONCOLOGICAL Hx Blood Disorders: No - INTEGUMENTARY Hx Dermatological Problems: No - MUSCULOSKELETAL/RHEUMATOLOGICAL Hx Falls: No - GASTROINTESTINAL Hx Gastrointestinal Disorders: No - GENITOURINARY/GYNECOLOGICAL Hx Genitourinary Disorders: No - PSYCHIATRIC Hx Substance Use: No - SURGICAL HISTORY Hx Appendectomy: Yes - ANESTHESIA Hx Anesthesia: Yes Hx Anesthesia Reactions: No Hx Malignant Hyperthermia: No Meds Allergies/Adverse Reactions: Allergies Allergy/AdvReac Type Severity Reaction Status Date / Time No Known Allergies Allergy Verified 09/29/17 18:28 - Medications Medications: Current Medications Amlodipine Besylate (Norvasc) 5 mg PO DAILY [facility] Last Admin: 09/30/17 10:15 Dose: 5 mg Enalapril Maleate (Vasotec) 10 mg PO DAILY [facility] Last Admin: 09/30/17 10:14 Dose: 10 mg Gabapentin (Neurontin) 300 mg PO HS [facility] Insulin Aspart (Novolog) 0 unit SC ACHS [facility] PRN Reason: Protocol Last Admin: 09/30/17 08:49 Dose: Not Given Rosuvastatin Calcium (Crestor) 5 mg PO HS [facility] Physical Exam - Constitutional Appears: Non-toxic, No Acute Distress - Head Exam Head Exam: ATRAUMATIC, NORMAL INSPECTION, NORMOCEPHALIC - Eye Exam Eye Exam: EOMI - ENT Exam ENT Exam: Mucous Membranes Moist, Normal Exam - Neck Exam Neck exam: Positive for: Normal Inspection - Respiratory Exam Respiratory Exam: Clear to Auscultation Bilateral, NORMAL BREATHING PATTERN - Cardiovascular Exam Cardiovascular Exam: REGULAR RHYTHM, +S1, +S2 - GI/Abdominal Exam GI & Abdominal Exam: Normal Bowel Sounds, Soft, Tenderness (right upper quadrant tenderness). absent: Distended, Guarding, Organomegaly, Rebound, Rigid - Extremities Exam Extremities exam: Positive for: normal inspection - Neurological Exam Neurological exam: Alert, Oriented x3 - Psychiatric Exam Psychiatric exam: Normal Affect, Normal Mood - Skin Skin Exam: Dry, Intact, Normal Color, Warm Results - Vital Signs Recent Vital Signs: Last Vital Signs Temp 97.8 F 09/30/17 07:35 Pulse 61 09/30/17 10:11 Resp 20 09/30/17 07:35 BP 128/77 09/30/17 10:14 Pulse Ox 100 09/30/17 07:35 - Labs Result Diagrams: 09/29/17 20:03 09/29/17 20:03 Labs: Laboratory Results - last 24 hr 09/29/17 09/29/17 09/29/17 20:03 20:03 20:03 WBC 11.9 H RBC 4.12 Hgb 12.0 Hct 36.3 MCV 88.1 MCH 29.1 MCHC 33.0 RDW 12.8 Plt Count 213 MPV 10.1 Neut % (Auto) 54.7 Lymph % (Auto) 35.8 [place] % (Auto) 5.4 Eos % (Auto) 2.8 Baso % (Auto) 1.3 Neut # (Auto) 6.5 Lymph # (Auto) 4.2 [place] # (Auto) 0.6 Eos # (Auto) 0.3 Baso # (Auto) 0.2 Sodium 140 Potassium 4.8 Chloride 102 Carbon Dioxide 25 Anion Gap 18 BUN 25 H Creatinine 1.5 H Est GFR ( Amer) 44 Est GFR (Non-Af Amer) 37 POC Glucose (mg/dL) Random Glucose 206 H Calcium 8.6 Total Bilirubin 0.4 AST 32 ALT 31 Alkaline Phosphatase 92 Total Protein 6.9 Albumin 3.6 Globulin 3.3 Albumin/Globulin Ratio 1.1 Lipase 336 H Urine Color Yellow Urine Clarity Clear Urine pH 6.0 Ur Specific [place] 1.009 Urine Protein Negative Urine Glucose (UA) 3+ H Urine Ketones Negative Urine Blood Negative Urine Nitrate Negative Urine Bilirubin Negative Urine Urobilinogen Normal Ur Leukocyte Esterase Trace Urine WBC (Auto) 7 H Urine RBC (Auto) < 1 Ur Squamous Epith Cells 1 Urine Bacteria Few H Urine HCG, Qual Negative 09/30/17 09/30/17 09/30/17 00:15 08:27 11:02 WBC RBC Hgb Hct MCV MCH MCHC RDW Plt Count MPV Neut % (Auto) Lymph % (Auto) [place] % (Auto) Eos % (Auto) Baso % (Auto) Neut # (Auto) Lymph # (Auto) [place] # (Auto) Eos # (Auto) Baso # (Auto) Sodium Potassium Chloride Carbon Dioxide Anion Gap BUN Creatinine Est GFR ( Amer) Est GFR (Non-Af Amer) POC Glucose (mg/dL) 145 H 97 147 H Random Glucose Calcium Total Bilirubin AST ALT Alkaline Phosphatase Total Protein Albumin Globulin Albumin/Globulin Ratio Lipase Urine Color Urine Clarity Urine pH Ur Specific [place] Urine Protein Urine Glucose (UA) Urine Ketones Urine Blood Urine Nitrate Urine Bilirubin Urine Urobilinogen Ur Leukocyte Esterase Urine WBC (Auto) Urine RBC (Auto) Ur Squamous Epith Cells Urine Bacteria Urine HCG, Qual Assessment & Plan - Assessment and Plan (Free Text) Assessment: 51F presents with pancreatitis and dilated CBD 2/2 unknown etiology as seen on CT scan Ultrasound from 2012 shows dilated CBD also, without cholelithiasis Plan: - NPO - IVF - Pain control - Follow up abdominal ultrasound - Recommend GI consult - Likely no surgical intervention due to anatomy, patient gallbladder contracted Further recs discuss with Dr. Stanley Mcelroy, PGY2
--- NOTE | 2017-09-30 12:17 | CP.PCM.CON ---
History of Present Illness - History of Present Illness History of Present Illness: INFECTIOUS DISEASE CONSULT; HPI; 51F with a PMH of HTN, HLD, arthritis, diabetes, osteoporosis, kidney injury came to the ED yesterday with right ABD pain and flank pain of 5 days duration. The pain is not associated with eating, urination or defecation. She states the pain comes and goes, describes it as sharp. She currently feels well and reports of no complaints other than that she has noticed she is urinating more frequently. Her pain is well controlled and she is able to eat and use the bathroom without issue. PATIENT DOES GIVE HISTORY OF RECURRENT UTIS. PATIENT ALSO HAS HISTORY OF BILATERAL CYSTS IN KIDNEYS. ON ADMISSION PATIENT ALSO FOUND TO HAVE ELEVATED LIPASE OF [address] OF THE ABDOMEN AND PELVIS WITH iv CONTRAST 09/29/17 SHOWED BILATERAL CYSTIC RENAL LESIONS ENUMERABLE-POLYCYSTIC KIDNEY DISEASE. BILIARY DUCTAL DILATATION WAS SEEN ? CAUSE NOT IDENTIFIED.. INFECTIOUS DISEASE CONSULTATION REQUESTEDFOR POSSIBLE SEPSIS/UTI AND PANCREATITIS. PATIENT WAS GIVEN ONE DOSE OF cIPRO IN THE ER PMH: HTN, HLD, arthritis, diabetes, osteoporosis,kidney injury PSH: Appendectomy Social: Denies alcohol, tobacco, drug use Allergies: No known allergies Review of Systems - Constitutional Constitutional: absent: Chills, Fever - EENT Eyes: absent: Change in Vision Nose/Mouth/Throat: absent: Mouth Lesions, Sore Throat - Cardiovascular Cardiovascular: absent: Chest Pain, Dyspnea - Respiratory Respiratory: absent: Cough, Hemoptysis - Gastrointestinal Gastrointestinal: Abdominal Pain (RIGHT FLANK PAIN.). absent: Diarrhea, Nausea , Vomiting - Genitourinary Genitourinary: Flank Pain (RIGHT-SIDED.), Urinary Frequency, Freq UTI - Musculoskeletal Musculoskeletal: As Per HPI - Neurological Neurological: absent: Headaches - Hematologic/Lymphatic Hematologic: As Per HPI. absent: Easy Bleeding, Easy Bruising, Lymphadenopathy Past Patient History - Infectious Disease Hx of Infectious Diseases: None - Tetanus Immunizations Tetanus Immunization: Unknown - Past Medical History & Family History Past Medical History?: Yes - Past Social History Smoking Status: Never Smoked - CARDIAC Hx Hypercholesterolemia: Yes Hx Hypertension: Yes - PULMONARY Hx Respiratory Disorders: No - NEUROLOGICAL Hx Neurological Disorder: No - HEENT Hx HEENT Problems: No - RENAL Hx Chronic Kidney Disease: Yes - ENDOCRINE/METABOLIC Hx Hyperthyroidism: Yes - HEMATOLOGICAL/ONCOLOGICAL Hx Blood Disorders: No - INTEGUMENTARY Hx Dermatological Problems: No - MUSCULOSKELETAL/RHEUMATOLOGICAL Hx Falls: No - GASTROINTESTINAL Hx Gastrointestinal Disorders: No - GENITOURINARY/GYNECOLOGICAL Hx Genitourinary Disorders: No - PSYCHIATRIC Hx Substance Use: No - SURGICAL HISTORY Hx Appendectomy: Yes - ANESTHESIA Hx Anesthesia: Yes Hx Anesthesia Reactions: No Hx Malignant Hyperthermia: No Meds Allergies/Adverse Reactions: Allergies Allergy/AdvReac Type Severity Reaction Status Date / Time No Known Allergies Allergy Verified 09/29/17 18:28 - Medications Medications: Current Medications Amlodipine Besylate (Norvasc) 5 mg PO DAILY [facility] Last Admin: 09/30/17 10:15 Dose: 5 mg Enalapril Maleate (Vasotec) 10 mg PO DAILY [facility] Last Admin: 09/30/17 10:14 Dose: 10 mg Gabapentin (Neurontin) 300 mg PO HS [facility] Piperacillin Sod/Tazobactam Sod (Zosyn 3.375 Gm Iv Premix) 3.375 gm in 50 mls @ 100 mls/hr IVPB Q6H [facility] PRN Reason: Protocol Insulin Aspart (Novolog) 0 unit SC ACHS [facility] PRN Reason: Protocol Last Admin: 09/30/17 08:49 Dose: Not Given Rosuvastatin Calcium (Crestor) 5 mg PO HS [facility] Physical Exam - Head Exam Head Exam: NORMAL INSPECTION - Eye Exam Eye Exam: EOMI, PERRL - ENT Exam ENT Exam: Normal Oropharynx - Neck Exam Neck exam: Positive for: Normal Inspection - Respiratory Exam Respiratory Exam: Clear to Auscultation Bilateral - Cardiovascular Exam Cardiovascular Exam: REGULAR RHYTHM, +S1, +S2 - GI/Abdominal Exam GI & Abdominal Exam: Hypoactive Bowel Sounds, Soft, Tenderness (RIGHT FLANK REGION). absent: Organomegaly - Extremities Exam Extremities exam: Positive for: pedal pulses present. Negative for: calf tenderness, pedal edema - Neurological Exam Neurological exam: Alert, CN II-XII Intact, Motor Sensory Deficit, Oriented x3, Reflexes Normal - Skin Skin Exam: Normal Color, Warm Results - Vital Signs Recent Vital Signs: Last Vital Signs Temp 97.8 F 09/30/17 07:35 Pulse 61 09/30/17 10:11 Resp 20 09/30/17 07:35 BP 128/77 09/30/17 10:14 Pulse Ox 100 09/30/17 07:35 - Labs Result Diagrams: 10/01/17 06:38 10/01/17 06:38 Labs: Laboratory Results - last 24 hr 09/29/17 09/29/17 09/29/17 20:03 20:03 20:03 WBC 11.9 H RBC 4.12 Hgb 12.0 Hct 36.3 MCV 88.1 MCH 29.1 MCHC 33.0 RDW 12.8 Plt Count 213 MPV 10.1 Neut % (Auto) 54.7 Lymph % (Auto) 35.8 [place] % (Auto) 5.4 Eos % (Auto) 2.8 Baso % (Auto) 1.3 Neut # (Auto) 6.5 Lymph # (Auto) 4.2 [place] # (Auto) 0.6 Eos # (Auto) 0.3 Baso # (Auto) 0.2 Sodium 140 Potassium 4.8 Chloride 102 Carbon Dioxide 25 Anion Gap 18 BUN 25 H Creatinine 1.5 H Est GFR ( Amer) 44 Est GFR (Non-Af Amer) 37 POC Glucose (mg/dL) Random Glucose 206 H Calcium 8.6 Total Bilirubin 0.4 AST 32 ALT 31 Alkaline Phosphatase 92 Total Protein 6.9 Albumin 3.6 Globulin 3.3 Albumin/Globulin Ratio 1.1 Lipase 336 H Urine Color Yellow Urine Clarity Clear Urine pH 6.0 Ur Specific [place] 1.009 Urine Protein Negative Urine Glucose (UA) 3+ H Urine Ketones Negative Urine Blood Negative Urine Nitrate Negative Urine Bilirubin Negative Urine Urobilinogen Normal Ur Leukocyte Esterase Trace Urine WBC (Auto) 7 H Urine RBC (Auto) < 1 Ur Squamous Epith Cells 1 Urine Bacteria Few H Urine HCG, Qual Negative 09/30/17 09/30/17 09/30/17 00:15 08:27 11:02 WBC RBC Hgb Hct MCV MCH MCHC RDW Plt Count MPV Neut % (Auto) Lymph % (Auto) [place] % (Auto) Eos % (Auto) Baso % (Auto) Neut # (Auto) Lymph # (Auto) [place] # (Auto) Eos # (Auto) Baso # (Auto) Sodium Potassium Chloride Carbon Dioxide Anion Gap BUN Creatinine Est GFR ( Amer) Est GFR (Non-Af Amer) POC Glucose (mg/dL) 145 H 97 147 H Random Glucose Calcium Total Bilirubin AST ALT Alkaline Phosphatase Total Protein Albumin Globulin Albumin/Globulin Ratio Lipase Urine Color Urine Clarity Urine pH Ur Specific [place] Urine Protein Urine Glucose (UA) Urine Ketones Urine Blood Urine Nitrate Urine Bilirubin Urine Urobilinogen Ur Leukocyte Esterase Urine WBC (Auto) Urine RBC (Auto) Ur Squamous Epith Cells Urine Bacteria Urine HCG, Qual - Imaging and Cardiology CT scan - abdomen Status: Report reviewed by me (SEE REPORT.) Assessment & Plan (1) UTI (urinary tract infection) Assessment and Plan: *zOSYN 3.375 EVERY 6 HOURLY 09/30/17 WHILE AWAITING CULTURES TO ADJUST ANTIBIOTICS. Status: Acute (2) Common bile duct dilatation Assessment and Plan: ct SCAN OF THE ABDOMEN AND PELVIS ABNORMAL BILIARY DUCTAL DILATION . ELEVATED LIPASE 336. SURGERY ON BOARD. CONTINUE ANTIBIOTICS AND OBSERVATION. Status: Acute (3) Pancreatitis Status: Acute (4) Diabetes mellitus type 2 Assessment and Plan: adequate control of blood sugars. Follow-up hemoglobin A1c. Status: Active
[2017-09-30] MEDS ORDERED: Sodium Chloride 0.9% 1,000 ML IV SCH (12:45)
[2017-09-30] MEDS: Piperacill/Tazo 3.375gm in Dex 3.375 GM/50 ML BAG IVPB SCH ×2 (12:54→18:07)
--- NOTE | 2017-09-30 17:51 | US ---
HISTORY: r/o cholecystitis. r/o CBD stone COMPARISON: CT scan of the abdomen and pelvis dated 09/29/2017. TECHNIQUE: Sonographic evaluation of the right upper quadrant of the abdomen. FINDINGS: LIVER: Enlarged, measuring 18.3 cm in length. Increased echogenicity of the liver parenchyma. No mass. No intrahepatic bile duct dilatation. GALLBLADDER: Unremarkable. No gallstones. COMMON BILE DUCT: Dilated, measuring 12 mm. No stones. PANCREAS: Unremarkable as visualized. No mass. No ductal dilatation. RIGHT KIDNEY: Measures 14.1 x 7.2 x 7.3 cm in length. Upper/ midpole cyst measuring 5.0 x 3.9 x 4.7 cm. Lower pole cyst measuring 2.5 x 3.2 x 2.6 cm. Normal echogenicity. No calculus, mass, or hydronephrosis. AORTA: No aneurysmal dilatation. IVC: Unremarkable. OTHER FINDINGS: None . IMPRESSION: Hepatomegaly with steatosis. No cholelithiasis or choledocholithiasis visualized. CBD dilatation measuring up to 12 mm. This is stable in appearance dating back CT scan of the abdomen pelvis dated 11/03/2016.
[2017-09-30] MEDS ORDERED: Dextrose 5%/0.9% NS 1,000 ML IV SCH (22:45)
[2017-10-01] MEDS: Piperacill/Tazo 3.375gm in Dex 3.375 GM/50 ML BAG IVPB SCH ×2 (00:01→05:59)
[2017-10-01 00:09] LABS: CK-MB 1.46 ng/mL (0.0-3.38)
[2017-10-01 06:45] LABS: BASO # 0.1 K/uL (0.0-0.2); BASO % 1.1 % (0.0-2.0); EOS # 0.3 K/uL (0.0-0.7); EOS % 3.2 % (0.0-4.0); HEMOGLOBIN 11.7 g/dL (11.0-16.0); LYMPH # 2.8 K/uL (1.0-4.3); LYMPH % 32.5 % (20.0-40.0); MEAN CELL VOLUME 87.8 fL (81.0-99.0); MEAN CORPUSCULAR HEMOGLOBIN 29.2 pg (27.0-31.0); MEAN CORPUSCULAR HGB CONC 33.2 g/dL (33.0-37.0); MEAN PLATELET VOLUME 9.6 fL (7.2-11.7); MONO # 0.6 K/uL (0.0-0.8); NEUT # 4.9 K/uL (1.8-7.0); NEUT % 56.2 % (50.0-75.0); RBC 4.02 Mil/uL (3.80-5.20); RED CELL DISTRIBUTION WIDTH 12.8 % (11.5-14.5); WHITE BLOOD COUNT 8.7 K/uL (4.8-10.8)
[2017-10-01 07:12] LABS: CK-MB 1.21 ng/mL (0.0-3.38); CK-MB 1.23 ng/mL (0.0-3.38)
--- NOTE | 2017-10-01 07:19 | CP.PCM.PN ---
Subjective - Date & Time of Evaluation Date of Evaluation: 10/01/17 Time of Evaluation: 07:16 - Subjective Subjective: General Surgery Progress Note for Dr Angel. Pt seen and examined this AM at bedside no acute events overnight. Patient complains of diffuse abdominal pain, flank pain and bilateral shoulder pain. She reports nausea, denies vomiting, denies SOB. Objective - Vital Signs/Intake and Output Vital Signs (last 24 hours): Temp Pulse Resp BP Pulse Ox 98.7 F 53 L 20 138/80 98 09/30/17 23:23 09/30/17 23:23 09/30/17 23:23 09/30/17 23:23 09/30/17 23:23 Intake and Output: 10/01/17 10/01/17 06:59 18:59 Intake Total 700 Balance 700 - Medications Medications: Current Medications Amlodipine Besylate (Norvasc) 5 mg PO DAILY [facility] Last Admin: 09/30/17 10:15 Dose: 5 mg Enalapril Maleate (Vasotec) 10 mg PO DAILY [facility] Last Admin: 09/30/17 10:14 Dose: 10 mg Gabapentin (Neurontin) 300 mg PO [facility] Last Admin: 09/30/17 22:46 Dose: 300 mg Piperacillin Sod/Tazobactam Sod (Zosyn 3.375 Gm Iv Premix) 3.375 gm in 50 mls @ 100 mls/hr IVPB Q6H [facility] PRN Reason: Protocol Last Admin: 10/01/17 05:59 Dose: 100 mls/hr Dextrose/Sodium Chloride (Dextrose 5%/0.9% Ns 1000 Ml) 1,000 mls @ 100 mls/hr IV .Q10H [facility] Last Admin: 09/30/17 22:46 Dose: 100 mls/hr Insulin Aspart (Novolog) 0 unit SC ACHS [facility] PRN Reason: Protocol Last Admin: 09/30/17 21:32 Dose: Not Given Rosuvastatin Calcium (Crestor) 5 mg PO [facility] Last Admin: 09/30/17 22:46 Dose: 5 mg - Labs Labs: 10/01/17 06:38 10/01/17 06:38 - Constitutional Appears: Non-toxic, No Acute Distress - Head Exam Head Exam: ATRAUMATIC, NORMOCEPHALIC - ENT Exam ENT Exam: Mucous Membranes Moist - Respiratory Exam Respiratory Exam: NORMAL BREATHING PATTERN - Cardiovascular Exam Cardiovascular Exam: +S1, +S2 - GI/Abdominal Exam GI & Abdominal Exam: Soft, Tenderness. absent: Distended, Firm, Guarding, Rigid - Neurological Exam Neurological Exam: Alert, Awake - Psychiatric Exam Psychiatric exam: Normal Affect, Normal Mood - Skin Skin Exam: Dry, Intact Assessment and Plan - Assessment and Plan (Free Text) Assessment: 51F presents with pancreatitis and dilated CBD 2/2 unknown etiology as seen on CT scan Ultrasound from 2011 shows dilated CBD also, without cholelithiasis 09/30 UD shows no stones in GB or CBD and a 12mm CBD Plan: - NPO - IVF - Pain control - No surgical intervention at this time - Continue care by primary and GI team Further recs discuss with Dr. Stanley Jimenez PGY2
[2017-10-01 07:20] LABS: ALBUMIN 3.1 g/dL (3.5-5.0); BLOOD UREA NITROGEN 21 mg/dL (7-17); CALCIUM 8.9 mg/dl (8.6-10.4); GFR AFRICAN-AMERICAN 36; GFR NON-AFRICAN AMERICAN 30
[2017-10-01 07:21] LABS: ALB/GLOB RATIO 1.1 (1.0-2.1); ALT/SGPT 29 U/L (9-52); AST/SGOT 31 U/L (14-36)
[2017-10-01] MEDS: (Novolog) Insulin Aspart, Recombinant 100 u/ml 10 ml vial SC SCH ×4 (07:58→21:18)
[2017-10-01] MEDS ORDERED: POLYETHYLENE GLYCOL 3350 17 GM/Dose PACKET PO ONE (08:15)
[2017-10-01] MEDS ORDERED: Meropenem 500 MG in Sodium Chloride 0.9% 100 ML IVPB SCH (13:00)
--- NOTE | 2017-10-01 13:03 | CP.PCM.PN ---
Subjective - Date & Time of Evaluation Date of Evaluation: 10/01/17 Time of Evaluation: 13:03 - Subjective Subjective: AFEBRILE. C/O DIFFUSE ABDOMINAL PAIN NAUSEA/NO VOMITING. SEEN BY SURGERY. LABS REVIEWED BLOOD CULTURE +VE GPC IN [facility] URINE CULTURE +VE E.COLI R- ZOSYN MEDS ADJUSTED. DC IV ZOSYN. START IV MERREM 500MG IV Q 12HRLY. 10/01/17 START IV VANCOMYCIN 1GM IVPB Q 24HRLY. 10/01/17 Objective - Vital Signs/Intake and Output Vital Signs (last 24 hours): Temp Pulse Resp BP Pulse Ox 97.6 F 60 20 125/80 95 10/01/17 07:00 10/01/17 07:00 10/01/17 07:00 10/01/17 09:49 10/01/17 07:00 Intake and Output: 10/01/17 10/01/17 06:59 18:59 Intake Total 700 Balance 700 - Medications Medications: Current Medications Amlodipine Besylate (Norvasc) 5 mg PO DAILY [facility] Last Admin: 10/01/17 09:49 Dose: 5 mg Enalapril Maleate (Vasotec) 10 mg PO DAILY [facility] Last Admin: 10/01/17 09:49 Dose: 10 mg Gabapentin (Neurontin) [address] [facility] Last Admin: 09/30/17 22:46 Dose: 300 mg Dextrose/Sodium Chloride (Dextrose 5%/0.9% Ns 1000 Ml) 1,000 mls @ 100 mls/hr IV .Q10H [facility] Last Admin: 09/30/17 22:46 Dose: 100 mls/hr Meropenem 500 mg/ Sodium (Chloride) 100 mls @ 100 mls/hr IVPB Q12H [facility] PRN Reason: Protocol Insulin Aspart (Novolog) 0 unit SC ACHS [facility] PRN Reason: Protocol Last Admin: 10/01/17 12:50 Dose: 1 u Rosuvastatin Calcium (Crestor) [address] [facility] Last Admin: 09/30/17 22:46 Dose: 5 mg - Labs Labs: 10/01/17 06:38 10/01/17 06:38 - Constitutional Appears: No Acute Distress - Head Exam Head Exam: NORMAL INSPECTION - Eye Exam Eye Exam: EOMI, PERRL - ENT Exam ENT Exam: Normal Oropharynx - Respiratory Exam Respiratory Exam: Clear to Ausculation Bilateral - Cardiovascular Exam Cardiovascular Exam: REGULAR RHYTHM, +S1, +S2 - GI/Abdominal Exam GI & Abdominal Exam: Soft, Tenderness (GENERALIZED), Normal Bowel Sounds - Extremities Exam Extremities Exam: absent: Calf Tenderness, Pedal Edema - Neurological Exam Neurological Exam: Alert, Awake, CN II-XII Intact - Psychiatric Exam Psychiatric exam: Normal Mood - Skin Skin Exam: Normal Color, Warm Assessment and Plan (1) UTI (urinary tract infection) Assessment & Plan: LABS REVIEWED BLOOD CULTURE +VE GPC IN [place] URINE CULTURE +VE E.COLI R- ZOSYN MEDS ADJUSTED. DC IV ZOSYN. START IV MERREM 500MG IV Q 12HRLY. 10/01/17 START IV VANCOMYCIN 1GM IVPB Q 24HRLY. 10/01/17 F/U RENAL FUNCTION F/U BC TO ADJUST ABX. Status: Acute (2) Common bile duct dilatation Status: Acute (3) Pancreatitis Status: Acute (4) Diabetes mellitus type 2 Status: Active
--- NOTE | 2017-10-01 13:34 | CP.PCM.PN ---
Subjective - Date & Time of Evaluation Date of Evaluation: 10/01/17 Time of Evaluation: 13:33 - Subjective Subjective: Patient of [facility]. Patient was initially admitted with the different PMD. Patient was admitted to the emergency room on 09/29/2017 with right-sided back pain. Patient has a history of uncontrolled diabetes, polycystic kidney disease, renal insufficiency, hypertension, hypercholesterolemia, history of CVA. Initially patient admitted to the medical floor, with the diagnosis of possible cholecystitis. Also urinary tract infection. Seen by surgery. Cleared from the surgical point of view. Currently having no abdominal pain. She is still on liquid diet. No chest pain or shortness of breath. But generalized body pain and weakness fatigue noted. Patient received a contrasted CAT scan on admission. There is a slight worsening renal failure noted now. On examination: Vital signs are stable. Blood pressure stable. Chest good air entry regular heart sounds nontender abdominal pedal edema VP GLOBAL alert awake oriented Patient's labs today reviewed Creatinine is 1.8 compared to 1.5 otherwise normal. We will advance the diet today. We will monitor the IV fluid as well as renal function Assessment and recommendation: 51-year-old female with a history of diabetes, hypertension, hypercholesterolemia, CVA, involving the occipital lobe, polycystic kidney disease, also renal insufficiency. Admitted with the generalized body pain, abdominal pain. Nonspecific. Urinary tract infection with E. coli. Patient the past had a multiple episodes of recurrent ESBL positive E. coli infection in the past. Closely monitor. IV fluids. Monitoring renal function will follow-up the patient Objective - Vital Signs/Intake and Output Vital Signs (last 24 hours): Temp Pulse Resp BP Pulse Ox 97.6 F 60 20 125/80 95 10/01/17 07:00 10/01/17 07:00 10/01/17 07:00 10/01/17 09:49 10/01/17 07:00 Intake and Output: 10/01/17 10/01/17 06:59 18:59 Intake Total 700 Balance 700 - Medications Medications: Current Medications Amlodipine Besylate (Norvasc) 5 mg PO DAILY [facility] Last Admin: 10/01/17 09:49 Dose: 5 mg Enalapril Maleate (Vasotec) 10 mg PO DAILY [facility] Last Admin: 10/01/17 09:49 Dose: 10 mg Gabapentin (Neurontin) 300 mg PO [facility] Last Admin: 09/30/17 22:46 Dose: 300 mg Dextrose/Sodium Chloride (Dextrose 5%/0.9% Ns 1000 Ml) 1,000 mls @ 100 mls/hr IV .Q10H [facility] Last Admin: 09/30/17 22:46 Dose: 100 mls/hr Meropenem 500 mg/ Sodium (Chloride) 100 mls @ 100 mls/hr IVPB Q12H [facility] PRN Reason: Protocol Insulin Aspart (Novolog) 0 unit SC ACHS [facility] PRN Reason: Protocol Last Admin: 10/01/17 12:50 Dose: 1 u Rosuvastatin Calcium (Crestor) 5 mg PO HS [facility] Last Admin: 09/30/17 22:46 Dose: 5 mg - Labs Labs: 10/01/17 06:38 10/01/17 06:38
[2017-10-01] MEDS: Sodium Chloride 0.9% 1,000 ML IV SCH ×2 (14:38→23:45)
[2017-10-01] MEDS: Meropenem 500 MG in Sodium Chloride 0.9% 100 ML IVPB SCH (16:13)
[2017-10-01] MEDS ORDERED: Vancomycin 1 gm/NS 200 ml 1 GM/200 ML BAG IVPB ONE (17:00)
[2017-10-02] MEDS: Meropenem 500 MG in Sodium Chloride 0.9% 100 ML IVPB SCH (03:33)
[2017-10-02] MEDS ORDERED: Vancomycin 1 gm/NS 200 ml 1 GM/200 ML BAG IVPB SCH ×2 (05:00→10:00)
[2017-10-02] MEDS: (Novolog) Insulin Aspart, Recombinant 100 u/ml 10 ml vial SC SCH ×2 (08:28→12:54)
[2017-10-02 09:07] LABS: BASO # 0.1 K/uL (0.0-0.2); EOS # 0.3 K/uL (0.0-0.7); EOS % 3.2 % (0.0-4.0); HEMOGLOBIN 11.7 g/dL (11.0-16.0); LYMPH # 2.9 K/uL (1.0-4.3); LYMPH % 33.7 % (20.0-40.0); MEAN CELL VOLUME 87.1 fL (81.0-99.0); MEAN CORPUSCULAR HEMOGLOBIN 29.4 pg (27.0-31.0); MEAN CORPUSCULAR HGB CONC 33.8 g/dL (33.0-37.0); MEAN PLATELET VOLUME 9.4 fL (7.2-11.7); MONO # 0.5 K/uL (0.0-0.8); MONO % 6.2 % (0.0-10.0); NEUT # 4.8 K/uL (1.8-7.0); NEUT % 55.9 % (50.0-75.0); RBC 3.98 Mil/uL (3.80-5.20); RED CELL DISTRIBUTION WIDTH 12.5 % (11.5-14.5); WHITE BLOOD COUNT 8.6 K/uL (4.8-10.8)
[2017-10-02 09:19] VITALS: BP 139/81; PULSE 64; TEMP 98; O2SAT 97
[2017-10-02 09:27] LABS: ALB/GLOB RATIO 1.3 (1.0-2.1); ALBUMIN 3.6 g/dL (3.5-5.0)
[2017-10-02 09:31] LABS: CK-MB 1.48 ng/mL (0.0-3.38)
[2017-10-02] MEDS: Sodium Chloride 0.9% 1,000 ML IV SCH (10:38)
--- NOTE | 2017-10-02 14:07 | CP.PCM.DIS ---
Provider - Provider Date of Admission: 09/30/17 10:58 Attending physician: Tomy Sy MD Time Spent in preparation of Discharge (in minutes): 45 Hospital Course - Lab Results Lab Results: Micro Results 09/30/17 01:17 Blood-Venous S.aureus & Coag-Neg Staph PNA FISH - Final 09/30/17 01:17 Blood-Venous Blood Culture - Preliminary Staphylococcus Species 09/30/17 01:17 Blood-Venous Gram Stain - Final 09/30/17 01:17 Blood-Venous Blood Culture - Preliminary NO GROWTH AFTER 48 HOURS 09/29/17 20:03 Urine,Clean Catch Urine Culture - Final Escherichia Coli Most Recent Lab Values WBC 8.6 K/uL (4.8-10.8) 10/02/17 08:59 RBC 3.98 Mil/uL (3.80-5.20) 10/02/17 08:59 Hgb 11.7 g/dL (11.0-16.0) 10/02/17 08:59 Hct 34.6 % (34.0-47.0) 10/02/17 08:59 MCV 87.1 fL (81.0-99.0) 10/02/17 08:59 MCH 29.4 pg (27.0-31.0) 10/02/17 08:59 MCHC 33.8 g/dL (33.0-37.0) 10/02/17 08:59 RDW 12.5 % (11.5-14.5) 10/02/17 08:59 Plt Count 186 K/uL (130-400) 10/02/17 08:59 MPV 9.4 fL (7.2-11.7) 10/02/17 08:59 Neut % (Auto) 55.9 % (50.0-75.0) 10/02/17 08:59 Lymph % (Auto) 33.7 % (20.0-40.0) 10/02/17 08:59 [place] % (Auto) 6.2 % (0.0-10.0) 10/02/17 08:59 Eos % (Auto) 3.2 % (0.0-4.0) 10/02/17 08:59 Baso % (Auto) 1.0 % (0.0-2.0) 10/02/17 08:59 Neut # (Auto) 4.8 K/uL (1.8-7.0) 10/02/17 08:59 Lymph # (Auto) 2.9 K/uL (1.0-4.3) 10/02/17 08:59 [place] # (Auto) 0.5 K/uL (0.0-0.8) 10/02/17 08:59 Eos # (Auto) 0.3 K/uL (0.0-0.7) 10/02/17 08:59 Baso # (Auto) 0.1 K/uL (0.0-0.2) 10/02/17 08:59 Sodium 143 mmol/L (132-148) 10/02/17 08:59 Potassium 4.1 mmol/L (3.6-5.2) 10/02/17 08:59 Chloride 108 mmol/L (98-107) H 10/02/17 08:59 Carbon Dioxide 25 mmol/L (22-30) 10/02/17 08:59 Anion Gap 14 (10-20) 10/02/17 08:59 BUN 21 mg/dL (7-17) H 10/02/17 08:59 Creatinine 1.7 mg/dL (0.7-1.2) H 10/02/17 08:59 Est GFR ( Amer) 38 10/02/17 08:59 Est GFR (Non-Af Amer) 32 10/02/17 08:59 POC Glucose (mg/dL) 185 mg/dL (65-110) H 10/02/17 12:15 Random Glucose 136 mg/dL (65-105) H 10/02/17 08:59 Calcium 9.0 mg/dl (8.6-10.4) 10/02/17 08:59 Total Bilirubin 0.6 mg/dL (0.2-1.3) 10/02/17 08:59 AST 41 U/L (14-36) H D 10/02/17 08:59 ALT 39 U/L (9-52) 10/02/17 08:59 Alkaline Phosphatase 86 U/L (38-126) 10/02/17 08:59 Total Creatine Kinase 107 U/L (30-135) 10/02/17 08:59 CK-MB (Mass) 1.48 ng/mL (0.0-3.38) 10/02/17 08:59 Troponin I < 0.0120 ng/mL (0.00-0.120) 10/02/17 08:59 Total Protein 6.4 g/dL (6.3-8.3) 10/02/17 08:59 Albumin 3.6 g/dL (3.5-5.0) 10/02/17 08:59 Globulin 2.9 gm/dL (2.2-3.9) 10/02/17 08:59 Albumin/Globulin Ratio 1.3 (1.0-2.1) 10/02/17 08:59 Lipase 336 U/L (23-300) H 09/29/17 20:03 Urine Color Yellow (YELLOW) 09/29/17 20:03 Urine Clarity Clear (Clear) 09/29/17 20:03 Urine pH 6.0 (5.0-8.0) 09/29/17 20:03 Ur Specific [place] 1.009 (1.003-1.030) 09/29/17 20:03 Urine Protein Negative mg/dL (NEGATIVE) 09/29/17 20:03 Urine Glucose (UA) 3+ mg/dL (Normal) H 09/29/17 20:03 Urine Ketones Negative mg/dL (NEGATIVE) 09/29/17 20:03 Urine Blood Negative (NEGATIVE) 09/29/17 20:03 Urine Nitrate Negative (NEGATIVE) 09/29/17 20:03 Urine Bilirubin Negative (NEGATIVE) 09/29/17 20:03 Urine Urobilinogen Normal mg/dL (0.2-1.0) 09/29/17 20:03 Ur Leukocyte Esterase Trace [place]/uL (Negative) 09/29/17 20:03 Urine WBC (Auto) 7 /hpf (0-5) H 09/29/17 20:03 Urine RBC (Auto) < 1 /hpf (0-3) 09/29/17 20:03 Ur Squamous Epith Cells 1 /hpf (0-5) 09/29/17 20:03 Urine Bacteria Few (<OCC) H 09/29/17 20:03 Urine HCG, Qual Negative (NEGATIVE) 09/29/17 20:03 - Hospital Course Hospital Course: Discharge summary: Patient is a 51-year-old female with a history of diabetes, hypertension, hypercholesteremia, history of CVA, polycystic kidney disease, renal insufficiency admitted to the hospital following abdominal pain, nausea, vomiting. Initially patient was admitted to the medical floor, with the diagnosis of possible acute cholecystitis. Infectious disease evaluation, surgical evaluation was called. Patient was initially admitted to service. And then the transferred to my service. Patient is known to me for long time. Patient is now started on intravenous antibiotic IV fluid. She also received intravenous contrast CAT scan of the abdomen, showing no acute pathology. CAT scan showing evidence of biliary ductal dilation tiny gallstones no cholecystitis bilateral renal cyst. Sonogram of the liver showing hepatomegaly, steatosis, no renal stones. Mildly dilated patient of the CBD stable. Patient received intravenous IV fluid. Her creatinine was closely monitored. Initially there was a jump up in the creatinine level, now the latest creatinine 1.7, improved. Patient is clinical stable. She will be discharged home today Final diagnoses: Nonspecific abdominal pain. Polycystic kidney disease. Uncontrolled diabetes, hypertension, hypercholesteremia, CVA. Weakness. She'll be discharged home she will follow up as an outpatient. Discharge Exam - Head Exam Head Exam: NORMAL INSPECTION Discharge Plan - Follow Up Plan Condition: FAIR Disposition: HOME/ ROUTINE Instructions: Hyperglycemia, Adult (DC), Urinary Tract Infection in Women (DC) , Renal Colic (DC), Renal Colic (GEN) Additional Instructions: . Continue home medications as directed.Diet and activity as tolerated
== END 2017-10-02 14:41 | disposition home or self-care (01) | DRG 569 ==
LOC: C.ER 18:14 → C.9E 22:48 → INTOOBSV 22:48 → C.6T 23:25 → OBSVTOIN 09-30 10:58 → C.6T 10-01 22:47
PROVIDERS: ADMIT Internal Medicine; ATTEND Internal Medicine
DX: N39.0 Urinary tract infection, site not specified (principal); K83.8 Other specified diseases of biliary tract; K85.90 Acute pancreatitis without necrosis or infection, unspecified; N18.9 Chronic kidney disease, unspecified; E11.22 Type 2 diabetes mellitus with diabetic chronic kidney disease; E11.65 Type 2 diabetes mellitus with hyperglycemia; Q61.3 Polycystic kidney, unspecified; I12.9 Hypertensive chronic kidney disease with stage 1 through stage 4 chronic kidney disease, or unspecified chronic kidney disease; E78.5 Hyperlipidemia, unspecified; E78.00 Pure hypercholesterolemia, unspecified; B96.20 Unspecified Escherichia coli [E. coli] as the cause of diseases classified elsewhere; M81.0 Age-related osteoporosis without current pathological fracture; Z90.49 Acquired absence of other specified parts of digestive tract; Z87.440 Personal history of urinary (tract) infections; Z86.73 Personal history of transient ischemic attack (TIA), and cerebral infarction without residual deficits

== ENCOUNTER 2018-02-15 09:45 | Emergency (ER) | payer MEDICAID ==
[2018-02-15 09:45] VITALS: BMI 35.3
[2018-02-15] MEDS: Albuterol-Ipratrop 3 mg / 0.5 (3 ml) UD IH SCH ×2 (10:30→10:45)
[2018-02-15] MEDS ORDERED: Albuterol-Ipratrop 3 mg / 0.5 (3 ml) UD ONE (10:33)
[2018-02-15 10:50] LABS: BASO # 0.1 K/uL (0.0-0.2); BASO % 1.2 % (0.0-2.0); EOS # 0.3 K/uL (0.0-0.7); EOS % 3.5 % (0.0-4.0); HEMOGLOBIN 11.8 g/dL (11.0-16.0); LYMPH # 2.6 K/uL (1.0-4.3); LYMPH % 30.1 % (20.0-40.0); MEAN CELL VOLUME 86.8 fL (81.0-99.0); MEAN CORPUSCULAR HEMOGLOBIN 28.9 pg (27.0-31.0); MEAN CORPUSCULAR HGB CONC 33.3 g/dL (33.0-37.0); MEAN PLATELET VOLUME 10.3 fL (7.2-11.7); MONO # 0.7 K/uL (0.0-0.8); NEUT % 57.2 % (50.0-75.0); RBC 4.08 Mil/uL (3.80-5.20); RED CELL DISTRIBUTION WIDTH 12.5 % (11.5-14.5); WHITE BLOOD COUNT 8.6 K/uL (4.8-10.8)
--- NOTE | 2018-02-15 10:54 | C.PDOC ---
History Of Present Illness 52 y/o female presents to the ER complaining of right heel pain which has been present for the past few days. Patient is also complaining of fever and cough which has been present for the past 3 days. Patient states that she has history of HTN and her bp is also elevated. Denies having CP,SOB, nausea, vomiting, weakness, and numbness. PMD: Time Seen by Provider: 02/15/18 10:02 Chief Complaint (Nursing): Abnormal Skin Integrity History Per: Patient History/Exam Limitations: no limitations Onset/Duration Of Symptoms: Days Current Symptoms Are (Timing): Still Present Severity: Moderate Past Medical History Reviewed: Historical Data, Nursing Documentation, Vital Signs Vital Signs: Last Vital Signs Temp 98.7 F 02/15/18 09:57 Pulse 69 02/15/18 09:57 Resp 15 02/15/18 09:57 BP 164/104 H 02/15/18 09:57 Pulse Ox 100 02/15/18 09:57 - Medical History PMH: Arthritis, Diabetes, Graves' Disease, HTN, Hypercholesterolemia, Hyperthyroidism, Osteoporosis, Chronic Kidney Disease Denies: Depression Surgical History: Appendectomy - [facility] Procedures CYSTOSCOPY NEC (03/25/04) INJECT/INFUSE ELECTROLYT (12/28/13) INJECT/INFUSE NEC (12/28/13) NEBULIZER THERAPY (12/28/13) URETERAL CATHETERIZATION (03/25/04) Family History: States: No Known Family Hx - Social History Hx Tobacco Use: No Hx Alcohol Use: No Hx Substance Use: No - Immunization History Hx Tetanus Toxoid Vaccination: Yes Hx Influenza Vaccination: Yes Hx Pneumococcal Vaccination: Yes Review Of Systems Except As Marked, All Systems Reviewed And Found Negative. Constitutional: Positive for: Fever. Negative for: Chills Cardiovascular: Negative for: Chest Pain Respiratory: Positive for: Cough. Negative for: Shortness of Breath Musculoskeletal: Positive for: Other (right heel pain) Neurological: Negative for: Weakness, Numbness Physical Exam - Physical Exam Appears: Non-toxic, No Acute Distress Skin: Normal Color, Warm, Dry, Other (small cracks from dry skin to lateral aspect of right heel ) Head: Atraumatic, Normacephalic Eye(s): bilateral: Normal Inspection Nose: Normal Oral Mucosa: Moist Neck: Supple Chest: Symmetrical Cardiovascular: Rhythm Regular Respiratory: Normal Breath Sounds, No Rales, No Rhonchi, No Wheezing Extremity: Normal ROM, Tenderness (tenderness to lateral aspect of right heel), No Swelling, Other (no erythema to right heel) Neurological/Psych: Oriented x3, Normal Speech Gait: Steady ED Course And Treatment - Laboratory Results Result Diagrams: 02/15/18 10:46 02/15/18 10:46 Lab Interpretation: Abnormal O2 Sat by Pulse Oximetry: 100 (RA) Pulse Ox Interpretation: Normal - Radiology CXR: Interpreted by Me, Viewed By Me CXR Interpretation: Yes: No Acute Disease - Other Rad X-Ray-Right Foot X-Ray: Viewed By Me, Read By Radiologist Interpretation: Date of service: 02/15/2018. PROCEDURE: Right Foot Radiographs. HISTORY: Pain. No history of recent/ related trauma provided. Diabetes. Relevant medical history: COMPARISON: None. FINDINGS: BONES: Small plantar calcaneal spur. No fracture identified. JOINTS: Normal. SOFT TISSUES: Normal. OTHER FINDINGS: None. IMPRESSION: No significant or acute findings to account for/ related to the clinical presentation. Progress Note: Treated with duoneb x 2 and bactrim DS x 1. Case discussed with Dr Sy who agrees with discharge home and follow up as outpatient Reassessment Condition: Improved - Physician Consult Information Physician Contacted: Tomy Sy Outcome Of Conversation: discharge to follow up as outpatient Medical Decision Making Medical Decision Making: Plan: --Labs --UA --CXR --X-Ray- Right Foot --Albuterol Updates: Case discussed with podiatry resident. Podiatry resident states that they will evaluate patient in podiatry clinic. Disposition Discussed With DrJodi: Tomy Sy Doctor Will See Patient In The: Office Counseled Patient/Family Regarding: Studies Performed, Diagnosis, Need For Followup, Rx Given - Disposition Referrals: Tomy Sy MD [Staff Provider] - Monica Quezada DPM [Staff Provider] - Disposition: HOME/ ROUTINE Disposition Time: 12:20 Condition: IMPROVED Additional Instructions: Follow up with Dr Sy for further evaluation Follow up with podiatry for further evaluation Prescriptions: Sulfamethoxazole/Trimethoprim [Bactrim DS 800 mg-160 mg] 1 tab PO BID #14 tab Instructions: Urinary Tract Infections in Adults, Foot Care for Diabetics Forms: [employer] (Macanese) Print Language: SINHALA - POA Present On Arrival: None - Clinical Impression Clinical Impression: Skin irritation, UTI (urinary tract infection) - PA / CLINICAL PROJECT COORDINATOR / Resident Statement MD/DO has reviewed & agrees with the documentation as recorded. - Scribe Statement The provider has reviewed the documentation as recorded by the Scribe Shashi Bone Provider Attestation All medical record entries made by the Scribe were at my direction and per sonally dictated by me. I have reviewed the chart and agree that the record accurately reflects my personal performance of the history, physical exam, medical decision making, and the department course for this patient. I have also personally directed, reviewed, and agree with the discharge instructions and disposition.
--- NOTE | 2018-02-15 10:56 | RAD ---
HISTORY: SOB COMPARISON: Chest x-ray performed 04/11/17 TECHNIQUE: Chest PA and lateral FINDINGS: Examination limited by habitus and hypoinflation. LUNGS: Mild biapical pleural thickening and upper lobe granulomatous changes. No focal consolidation. Please note that chest x-ray has limited sensitivity for the detection of pulmonary masses. PLEURA: No significant pleural effusion identified. No definite pneumothorax . CARDIOVASCULAR: Heart size appears within normal limits. Ectatic aorta. Atherosclerotic calcifications of the aorta present. OSSEOUS STRUCTURES: Osseous demineralization. Degenerative changes. VISUALIZED UPPER ABDOMEN: Unremarkable. OTHER FINDINGS: None. IMPRESSION: No acute pathology identified. Incidental findings as above.
[2018-02-15 10:59] LABS: SQUAMOUS EPITHIAL 5 /hpf (0-5); URINE BACTERIA MANY (<OCC); URINE BILIRUBIN NEGATIVE (NEGATIVE); URINE BLOOD 1+ (NEGATIVE); URINE CLARITY Hazy (Clear); URINE COLOR Yellow (YELLOW); URINE GLUCOSE (UA) 1+ mg/dL (Normal); URINE LEUKOCYTE ESTERASE 2+ Leu/uL (Negative); URINE PROTEIN NEGATIVE (NEGATIVE); URINE UROBILINOGEN NORMAL mg/dL (0.2-1.0)
[2018-02-15 11:01] LABS: ALB/GLOB RATIO 1.2 (1.0-2.1); ALBUMIN 4.1 g/dL (3.5-5.0); CALCIUM 9.6 mg/dl (8.6-10.4)
[2018-02-15 11:31] VITALS: O2SAT 100
[2018-02-15] MEDS ORDERED: Sodium Chloride 0.9% 1,000 ML IV ONE (11:33)
[2018-02-15] MEDS ORDERED: Tmp-Smz 800 mg-160 mg DS Tab PO STA (11:51)
[2018-02-15] MEDS ORDERED: Tmp-Smz 800 mg-160 mg DS Tab ONE (11:58)
[2018-02-15] MEDS ORDERED: Bacitracin 500 Units/gm Oint Foilpak UD TOP ONE (12:00)
[2018-02-15] MEDS ORDERED: Bacitracin 500 Units/gm Oint Foilpak UD ONE (12:13)
[2018-02-15 12:15] VITALS: BP 129/66; PULSE 76; RESP 16; TEMP 97.8
--- NOTE | 2018-02-15 13:02 | RAD ---
Date of service: 02/15/2018 PROCEDURE: Right Foot Radiographs. HISTORY: Pain. No history of recent/ related trauma provided Diabetes. Relevant medical history: COMPARISON: None. FINDINGS: BONES: Small plantar calcaneal spur. No fracture identified. JOINTS: Normal. SOFT TISSUES: Normal. OTHER FINDINGS: None. IMPRESSION: No significant or acute findings to account for/ related to the clinical presentation.
== END 2018-02-15 12:44 | disposition home or self-care (01) ==
LOC: C.ER 09:45
DX: L98.8 Other specified disorders of the skin and subcutaneous tissue (principal); N39.0 Urinary tract infection, site not specified
CPT/HCPCS: 71046; 73630; 80053; 81001; 85025; 94640; 96360; 99285; J7030

== ENCOUNTER 2018-06-17 16:50 | Observation (INO) | payer MEDICAID, OTHER ==
[2018-06-17 16:51] VITALS: BMI 35.3
[2018-06-17 18:24] LABS: BASO # 0.1 K/uL (0.0-0.2); BASO % 0.8 % (0.0-2.0); EOS # 0.1 K/uL (0.0-0.7); EOS % 1.4 % (0.0-4.0); HEMOGLOBIN 12.3 g/dL (11.0-16.0); LYMPH # 3.4 K/uL (1.0-4.3); LYMPH % 32.4 % (20.0-40.0); MEAN CELL VOLUME 88.8 fL (81.0-99.0); MEAN CORPUSCULAR HEMOGLOBIN 28.6 pg (27.0-31.0); MEAN CORPUSCULAR HGB CONC 32.2 g/dL (33.0-37.0); MONO # 0.6 K/uL (0.0-0.8); MONO % 5.6 % (0.0-10.0); NEUT # 6.2 K/uL (1.8-7.0); NEUT % 59.8 % (50.0-75.0); NRBC % 0.1 % (0.0-2.0); RBC 4.29 Mil/uL (3.80-5.20); WHITE BLOOD COUNT 10.4 K/uL (4.8-10.8)
[2018-06-17 18:35] LABS: PROTHROMBIN TIME 10.4 SECONDS (9.7-12.2)
[2018-06-17 18:40] LABS: ALB/GLOB RATIO 1.3 (1.0-2.1); ALT/SGPT 21 U/L (9-52); AST/SGOT 31 U/L (14-36); BLOOD UREA NITROGEN 30 mg/dL (7-17); CALCIUM 8.7 mg/dl (8.6-10.4); GFR NON-AFRICAN AMERICAN 26
[2018-06-17 18:51] LABS: CK-MB 2.44 ng/mL (0.0-3.38)
--- NOTE | 2018-06-17 19:06 | C.PDOC ---
History Of Present Illness 52 year old female presents to the emergency department with complaints of midsternal chest pain going to left side of neck and jaw. Patient is also complaining of headache, dizziness, and shortness of breath since last night. <Martina Levi - Last Filed: 06/17/18 19:10> History Per: Patient History/Exam Limitations: no limitations Onset/Duration Of Symptoms: Days (1) Current Symptoms Are (Timing): Still Present Quality: "Pain" Associated Symptoms: Dyspnea <Martina Levi - Last Filed: 06/17/18 19:10> <Ravi Smith - Last Filed: 06/17/18 22:53> Time Seen by Provider: 06/17/18 17:12 Chief Complaint (Nursing): Chest Pain Past Medical History Reviewed: Historical Data, Nursing Documentation, Vital Signs Vital Signs: Last Vital Signs Temp 98.3 F 06/17/18 16:57 Pulse 76 06/17/18 16:57 Resp 18 06/17/18 16:57 BP 179/98 H 06/17/18 16:57 Pulse Ox 100 06/17/18 16:57 - Medical History PMH: Arthritis, Diabetes, Graves' Disease, HTN, Hypercholesterolemia, Hyperthyroidism, Osteoporosis, Chronic Kidney Disease Denies: Depression Surgical History: Appendectomy - [facility] Procedures CYSTOSCOPY NEC (03/25/04) INJECT/INFUSE ELECTROLYT (12/28/13) INJECT/INFUSE NEC (12/28/13) NEBULIZER THERAPY (12/28/13) URETERAL CATHETERIZATION (03/25/04) Family History: States: No Known Family Hx - Social History Hx Tobacco Use: No Hx Alcohol Use: No Hx Substance Use: No - Immunization History Hx Tetanus Toxoid Vaccination: Yes Hx Influenza Vaccination: Yes Hx Pneumococcal Vaccination: Yes <Martina Levi - Last Filed: 06/17/18 19:10> Vital Signs: Last Vital Signs Temp 98.3 F 06/17/18 16:57 Pulse 83 06/17/18 19:04 Resp 16 06/17/18 19:04 BP 169/65 H 06/17/18 19:04 Pulse Ox 100 06/17/18 19:12 - [facility] Procedures CYSTOSCOPY NEC (03/25/04) INJECT/INFUSE ELECTROLYT (12/28/13) INJECT/INFUSE NEC (12/28/13) NEBULIZER THERAPY (12/28/13) URETERAL CATHETERIZATION (03/25/04) <Ravi Smith - Last Filed: 06/17/18 22:53> Review Of Systems Except As Marked, All Systems Reviewed And Found Negative. Constitutional: Negative for: Fever, Chills Cardiovascular: Positive for: Chest Pain Respiratory: Positive for: Shortness of Breath Musculoskeletal: Positive for: Neck Pain, Other (jaw pain) Neurological: Positive for: Headache, Dizziness <Martina Levi - Last Filed: 06/17/18 19:10> Physical Exam - Physical Exam Appears: Non-toxic, No Acute Distress Skin: Normal Color, Warm, Dry Head: Atraumatic, Normacephalic Eye(s): bilateral: Normal Inspection, PERRL, EOMI Nose: Normal Oral Mucosa: Moist Neck: Normal, Supple Chest: Symmetrical, No Tenderness Cardiovascular: Rhythm Regular, No Murmur Respiratory: Normal Breath Sounds, No Rales, No Rhonchi, No Wheezing Gastrointestinal/Abdominal: Soft, No Tenderness, No Guarding, No Rebound Neurological/Psych: Oriented x3, Normal Speech, Normal Cognition <Martina Levi - Last Filed: 06/17/18 19:10> ED Course And Treatment - Laboratory Results Result Diagrams: 06/17/18 18:21 06/17/18 18:21 Lab Results: PT 10.4 SECONDS (9.7-12.2) 06/17/18 18:21 INR 1.0 06/17/18 18:21 APTT 31 SECONDS (21-34) 06/17/18 18:21 Troponin I < 0.0120 ng/mL (0.00-0.120) 06/17/18 18:21 Total Bilirubin 0.4 mg/dL (0.2-1.3) 06/17/18 18:21 AST 31 U/L (14-36) 06/17/18 18:21 ALT 21 U/L (9-52) 06/17/18 18:21 Alkaline Phosphatase 108 U/L (38-126) 06/17/18 18:21 Total Protein 7.0 g/dL (6.3-8.3) 06/17/18 18:21 Albumin 4.0 g/dL (3.5-5.0) 06/17/18 18:21 Globulin 3.0 gm/dL (2.2-3.9) 06/17/18 18:21 Albumin/Globulin Ratio 1.3 (1.0-2.1) 06/17/18 18:21 ECG Rhythm: Sinus Rhythm Interpretation Of ECG: Normal sinus rhythm at 70bpm, no acute changes. O2 Sat by Pulse Oximetry: 100 (RA) Pulse Ox Interpretation: Normal <Martina Levi - Last Filed: 06/17/18 19:10> - Laboratory Results Result Diagrams: 06/17/18 18:21 06/17/18 18:21 Lab Results: PT 10.4 SECONDS (9.7-12.2) 06/17/18 18:21 INR 1.0 06/17/18 18:21 APTT 31 SECONDS (21-34) 06/17/18 18:21 Troponin I < 0.0120 ng/mL (0.00-0.120) 06/17/18 18:21 Total Bilirubin 0.4 mg/dL (0.2-1.3) 06/17/18 18:21 AST 31 U/L (14-36) 06/17/18 18:21 ALT 21 U/L (9-52) 06/17/18 18:21 Alkaline Phosphatase 108 U/L (38-126) 06/17/18 18:21 Total Protein 7.0 g/dL (6.3-8.3) 06/17/18 18:21 Albumin 4.0 g/dL (3.5-5.0) 06/17/18 18:21 Globulin 3.0 gm/dL (2.2-3.9) 06/17/18 18:21 Albumin/Globulin Ratio 1.3 (1.0-2.1) 06/17/18 18:21 Urine Color Yellow (YELLOW) 06/17/18 18:55 Urine Clarity Hazy (Clear) 06/17/18 18:55 Urine pH 6.0 (5.0-8.0) 06/17/18 18:55 Ur Specific [place] 1.009 (1.003-1.030) 06/17/18 18:55 Urine Protein 1+ mg/dL (NEGATIVE) H 06/17/18 18:55 Urine Glucose (UA) 3+ mg/dL (Normal) H 06/17/18 18:55 Urine Ketones Negative mg/dL (NEGATIVE) 06/17/18 18:55 Urine Blood Negative (NEGATIVE) 06/17/18 18:55 Urine Nitrate Positive (NEGATIVE) H 06/17/18 18:55 Urine Bilirubin Negative (NEGATIVE) 06/17/18 18:55 Urine Urobilinogen Normal mg/dL (0.2-1.0) 06/17/18 18:55 Ur Leukocyte Esterase Trace Cornelius/uL (Negative) 06/17/18 18:55 Urine WBC (Auto) 5 /hpf (0-5) 06/17/18 18:55 Urine RBC (Auto) < 1 /hpf (0-3) 06/17/18 18:55 Ur Squamous Epith Cells 2 /hpf (0-5) 06/17/18 18:55 Urine Bacteria Few (<OCC) H 06/17/18 18:55 - CT Scan/US CT Brain Other Rad Studies (CT/US): Read By Radiologist, Radiology Report Reviewed CT/US Interpretation: IMPRESSION: Large low density infarct suspected within the right temporal lobe and posterior parietal region. Clinical correlation is advised. <Ravi Smith - Last Filed: 06/17/18 22:53> Medical Decision Making Medical Decision Making: Plan: CT Head EKG Chemistry Bloodwork CXR Urinalysis <Martina Levi - Last Filed: 06/17/18 19:10> Medical Decision Making: Enzymes negative. CT Head shows old infarcts. Dr. Sy accepts patient to his service for cardiac observation. <Ravi Smith - Last Filed: 06/17/18 22:53> Disposition - Disposition Disposition Time: 19:11 <Martina Levi - Last Filed: 06/17/18 19:10> <Ravi Smith - Last Filed: 06/17/18 22:53> - Disposition Disposition: HOSPITALIZED Condition: FAIR - Clinical Impression Clinical Impression: Renal insufficiency, Chest pain, Hyperglycemia, Headache - PA / CONGRESSIONAL REPRESENTATIVE / Resident Statement MD/DO has reviewed & agrees with the documentation as recorded. - Scribe Statement The provider has reviewed the documentation as recorded by the Scribe (Adán Up) All medical record entries made by the Scribe were at my direction and personally dictated by me. I have reviewed the chart and agree that the record accurately reflects my personal performance of the history, physical exam, medical decision making, and the department course for this patient. I have also personally directed, reviewed, and agree with the discharge instructions and disposition. <Martina Levi - Last Filed: 06/17/18 19:10> Physician Patient Turnover Patient Signed Over To: Ravi Smith Handoff Comments: pending CXR and head CT, dispo <Martina Levi - Last Filed: 06/17/18 19:10>
[2018-06-17 19:11] LABS: SQUAMOUS EPITHIAL 2 /hpf (0-5); URINE BACTERIA FEW (<OCC); URINE BILIRUBIN NEGATIVE (NEGATIVE); URINE BLOOD NEGATIVE (NEGATIVE); URINE CLARITY Hazy (Clear); URINE COLOR Yellow (YELLOW); URINE GLUCOSE (UA) 3+ mg/dL (Normal); URINE LEUKOCYTE ESTERASE TRACE Leu/uL (Negative); URINE PROTEIN 1+ mg/dL (NEGATIVE); URINE UROBILINOGEN NORMAL mg/dL (0.2-1.0)
--- NOTE | 2018-06-17 23:03 | CP.PCM.HP ---
History of Present Illness - History of Present Illness History of Present Illness: Chief complaint: Left-sided chest pain and discomfort HPI: 52-year-old female with a history of diabetes, hypertension, hypercholester olemia, history of CVA in the past, also had a history of TIA with the legal cortical blindness, also polycystic ovarian disease with renal insufficiency. Patient is currently do not have insurance, and she is not taking her medications properly. She is scheduled to see disability claims office in 2 days. Patient came to the emergency room with worsening pain in the anterior chest area, associate with some radiation to the left upper extremity as well as in the jaw region. Patient also noted to have elevated blood pressure at this time. She has no nausea. No vomiting. Poor intake noted. Blood sugar is not controlled well. Also her blood pressure is uncontrolled recently. She is not checking her blood sugar on a daily basis. She has no headache. But she is feeling increasingly weak, tired, fatigue, and joint stiffness and joint pains noted. Present on Admission - Present on Admission Any Indicators Present on Admission: No History of DVT/PE: No History of Uncontrolled Diabetes: No Urinary Catheter: No Decubitus Ulcer Present: No Review of Systems - Review of Systems Systems not reviewed;Unavailable: Acuity of Condition Review of Systems: Having history of CVA. Patient in the past patient denies any nausea no vomiting. Ongoing chest pain noted. No abdominal symptoms. Poor intake noted. Generalized weakness tiredness fatigability noted. Anxiety and depression present., Past Patient History - Infectious Disease Hx of Infectious Diseases: None - Tetanus Immunizations Tetanus Immunization: Unknown - Past Medical History & Family History Past Medical History?: Yes Pertinent Family History: Family history of diabetes and hypertension noted - Past Social History Smoking Status: Never Smoked Chewing Tobacco Use: No Cigar Use: No Alcohol: None Drugs: Denies Home Situation {Lives}: With Family Domestic Violence: Negative - CARDIAC Hx Hypercholesterolemia: Yes Hx Hypertension: Yes - PULMONARY Hx Respiratory Disorders: No - NEUROLOGICAL Hx Neurological Disorder: Yes (Patient in the past had a history of CVA, and also had a history of cortica) HX Cerebrovascular Accident: Yes (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) Hx Transient Ischemic Attacks (TIA): Yes - HEENT Hx HEENT Problems: No - RENAL Hx Chronic Kidney Disease: Yes (Patient has a polycystic kidney disease) Hx Renal Failure: Yes - ENDOCRINE/METABOLIC Hx Hyperthyroidism: Yes - HEMATOLOGICAL/ONCOLOGICAL Hx Blood Disorders: No - INTEGUMENTARY Hx Dermatological Problems: No - MUSCULOSKELETAL/RHEUMATOLOGICAL Hx Arthritis: Yes Hx Osteoporosis: Yes - GASTROINTESTINAL Hx Gastrointestinal Disorders: No - GENITOURINARY/GYNECOLOGICAL Hx Genitourinary Disorders: Yes (Patient has a history of recurrent urinary tract infection in the past) - PSYCHIATRIC Hx Anxiety: Yes Hx Depression: Yes Hx Substance Use: No - SURGICAL HISTORY Hx Appendectomy: Yes - ANESTHESIA Hx Anesthesia: Yes Hx Anesthesia Reactions: No Hx Malignant Hyperthermia: No Meds Allergies/Adverse Reactions: Allergies Allergy/AdvReac Type Severity Reaction Status Date / Time No Known Allergies Allergy Verified 06/17/18 17:00 Physical Exam - Constitutional Additional comments: Chest good air entry Regular heart sounds noted Nontender abdomen. No pedal edema noted Results - Vital Signs Recent Vital Signs: Last Vital Signs Temp 97.6 F 06/17/18 22:35 Pulse 60 06/17/18 22:35 Resp 18 06/17/18 22:35 BP 163/95 H 06/17/18 22:35 Pulse Ox 98 06/17/18 22:35 - Labs Result Diagrams: 06/18/18 07:39 06/18/18 07:39 Labs: Laboratory Results - last 24 hr 06/17/18 06/17/18 06/17/18 18:21 18:21 18:21 WBC 10.4 RBC 4.29 Hgb 12.3 Hct 38.1 MCV 88.8 D MCH 28.6 MCHC 32.2 L RDW 13.0 Plt Count 208 MPV 11.0 Neut % (Auto) 59.8 Lymph % (Auto) 32.4 Bureau % (Auto) 5.6 Eos % (Auto) 1.4 Baso % (Auto) 0.8 Neut # (Auto) 6.2 Lymph # (Auto) 3.4 Bureau # (Auto) 0.6 Eos # (Auto) 0.1 Baso # (Auto) 0.1 PT 10.4 INR 1.0 APTT 31 Sodium 136 Potassium 5.4 H Chloride 101 Carbon Dioxide 25 Anion Gap 15 BUN 30 H Creatinine 2.0 H Est GFR ( Amer) 32 Est GFR (Non-Af Amer) 26 Random Glucose 395 H D Calcium 8.7 Total Bilirubin 0.4 AST 31 ALT 21 Alkaline Phosphatase 108 Total Creatine Kinase 150 H CK-MB (Mass) 2.44 Troponin I < 0.0120 Total Protein 7.0 Albumin 4.0 Globulin 3.0 Albumin/Globulin Ratio 1.3 Urine Color Urine Clarity Urine pH Ur Specific [place] Urine Protein Urine Glucose (UA) Urine Ketones Urine Blood Urine Nitrate Urine Bilirubin Urine Urobilinogen Ur Leukocyte Esterase Urine WBC (Auto) Urine RBC (Auto) Ur Squamous Epith Cells Urine Bacteria 06/17/18 18:55 WBC RBC Hgb Hct MCV MCH MCHC RDW Plt Count MPV Neut % (Auto) Lymph % (Auto) Bureau % (Auto) Eos % (Auto) Baso % (Auto) Neut # (Auto) Lymph # (Auto) Bureau # (Auto) Eos # (Auto) Baso # (Auto) PT INR APTT Sodium Potassium Chloride Carbon Dioxide Anion Gap BUN Creatinine Est GFR ( Amer) Est GFR (Non-Af Amer) Random Glucose Calcium Total Bilirubin AST ALT Alkaline Phosphatase Total Creatine Kinase CK-MB (Mass) Troponin I Total Protein Albumin Globulin Albumin/Globulin Ratio Urine Color Yellow Urine Clarity Hazy Urine pH 6.0 Ur [address] [place] 1.009 Urine Protein 1+ H Urine Glucose (UA) 3+ H Urine Ketones Negative Urine Blood Negative Urine Nitrate Positive H Urine Bilirubin Negative Urine Urobilinogen Normal Ur Leukocyte Esterase Trace Urine WBC (Auto) 5 Urine RBC (Auto) < 1 Ur Squamous Epith Cells 2 Urine Bacteria Few H - EKG Data When Compared to Previous EKG: No Significant Change Assessment & Plan (1) Chest pain Assessment and Plan: Patient with nonspecific chest pain. Patient has a multiple risk factor for heart disease. Will monitor, cardiac enzymes monitoring. We will repeat echocardiogram tomorrow. If the enzymes are negative, and also echocardiogram is negative possible discharge planned tomorrow. Control the blood sugar. Diabetes to be controlled. Currently on aspirin. Also patient is on statins and will follow the patient Status: Acute (2) Renal insufficiency Status: Acute (3) Diabetes mellitus type 2 Status: Active
[2018-06-17] MEDS ORDERED: Sod Polystyrene Sulf 15 gm/60 ml Susp PO ONE (23:05)
[2018-06-17 23:50] LABS: CK-MB 2.22 ng/mL (0.0-3.38)
[2018-06-18 07:58] LABS: BASO # 0.1 K/uL (0.0-0.2); BASO % 0.7 % (0.0-2.0); EOS # 0.2 K/uL (0.0-0.7); EOS % 2.7 % (0.0-4.0); HEMOGLOBIN 11.7 g/dL (11.0-16.0); LYMPH # 3.6 K/uL (1.0-4.3); LYMPH % 44.1 % (20.0-40.0); MEAN CELL VOLUME 87.7 fL (81.0-99.0); MEAN CORPUSCULAR HEMOGLOBIN 29.2 pg (27.0-31.0); MEAN CORPUSCULAR HGB CONC 33.3 g/dL (33.0-37.0); MEAN PLATELET VOLUME 10.4 fL (7.2-11.7); MONO # 0.5 K/uL (0.0-0.8); NEUT # 3.8 K/uL (1.8-7.0); NEUT % 46.5 % (50.0-75.0); RBC 4.01 Mil/uL (3.80-5.20); RED CELL DISTRIBUTION WIDTH 12.8 % (11.5-14.5); WHITE BLOOD COUNT 8.2 K/uL (4.8-10.8)
[2018-06-18] MEDS: (Novolin R) Insulin Human Regular 100 units/ml vial SC SCH ×4 (08:05→21:53)
[2018-06-18 08:07] LABS: ALB/GLOB RATIO 1.2 (1.0-2.1); ALBUMIN 3.7 g/dL (3.5-5.0); CALCIUM 8.9 mg/dl (8.6-10.4)
--- NOTE | 2018-06-18 10:02 | CT ---
Date of service: 06/17/2018 PROCEDURE: CT HEAD WITHOUT CONTRAST. HISTORY: headache, dizziness COMPARISON: 08/28/2015 TECHNIQUE: Axial computed tomography images were obtained through the head/brain without intravenous contrast. Radiation dose: Total exam DLP = 956.64 mGy-cm. This CT exam was performed using one or more of the following dose reduction techniques: Automated exposure control, adjustment of the mA and/or kV according to patient size, and/or use of iterative reconstruction technique. FINDINGS: HEMORRHAGE: No intracranial hemorrhage. BRAIN: No mass effect or edema. Encephalomalacia right temporal/occipital consistent with old infarct. No significant atrophy. No significant chronic white matter ischemic change. No evidence of acute infarct. VENTRICLES: Unremarkable. No hydrocephalus. CALVARIUM: Unremarkable. PARANASAL SINUSES: Unremarkable as visualized. No significant inflammatory changes. MASTOID AIR CELLS: Unremarkable as visualized. No inflammatory changes. OTHER FINDINGS: None. IMPRESSION: Encephalomalacia right occipito temporal consistent with old infarct. No evidence of acute infarct. No intracranial mass or hemorrhage. The preliminary findings for this examination were reported by [facility] at 7:16 p.m. on 06/17/2018. There is concurrence of this report with the preliminary findings.
--- NOTE | 2018-06-18 12:44 | CP.PCM.PN ---
Subjective - Date & Time of Evaluation Date of Evaluation: 06/18/18 Time of Evaluation: 12:43 - Subjective Subjective: Still having some chest discomfort. So far the cardiac enzymes are negative On examination: Vital signs stable. Chest good air entry regular hs nontender abdome Assessment and recognition: 52-year-old female with a history of diabetes hypertension peripheral neuropathy renal insufficiency polycystic kidney disease admitted with chest pain. We will continue the current treatment. Patient will be closely monitored. Echocardiogram tomorrow. After that she can be discharged home if it is normal Objective - Vital Signs/Intake and Output Vital Signs (last 24 hours): Temp Pulse Resp BP Pulse Ox 97.9 F 76 20 157/74 H 97 06/18/18 07:17 06/18/18 12:24 06/18/18 07:17 06/18/18 07:17 06/18/18 07:17 - Medications Medications: Current Medications Amlodipine Besylate (Norvasc) 10 mg PO DAILY [facility] Last Admin: 06/18/18 09:15 Dose: 10 mg Aspirin (Ecotrin) 81 mg PO DAILY [facility] Last Admin: 06/18/18 09:15 Dose: 81 mg Carvedilol (Coreg) 3.125 mg PO BID [facility] Last Admin: 06/18/18 09:15 Dose: 3.125 mg Glimepiride (Amaryl) 1 mg PO DAILY [facility] Insulin Human Regular (Novolin R) 0 unit [facility]; Protocol Last Admin: 06/18/18 11:50 Dose: 2 u Losartan Potassium (Cozaar) 25 mg PO DAILY [facility] Pregabalin (Lyrica) 75 mg PO BID [facility] Last Admin: 06/18/18 09:19 Dose: 75 mg Rosuvastatin Calcium (Crestor) [address] [facility] Sitagliptin Phosphate (Januvia) 50 mg PO DAILY [facility] Last Admin: 06/18/18 09:15 Dose: 50 mg - Labs Labs: 06/18/18 07:39 06/18/18 07:39 PT 10.4 SECONDS (9.7-12.2) 06/17/18 18:21 INR 1.0 06/17/18 18:21 APTT 31 SECONDS (21-34) 06/17/18 18:21 Assessment and Plan (1) Chest pain Status: Acute (2) Renal insufficiency Status: Acute (3) Diabetes mellitus type 2 Status: Active
--- NOTE | 2018-06-18 14:59 | RAD ---
Date of service: 06/17/2018 PROCEDURE: CHEST RADIOGRAPH, 1 VIEW HISTORY: Chest pain COMPARISON: 02/15/2018 FINDINGS: LUNGS: Clear. PLEURA: No pneumothorax or pleural fluid seen. CARDIOVASCULAR: No aortic atherosclerotic calcification present. Normal. OSSEOUS STRUCTURES: No significant abnormalities. VISUALIZED UPPER ABDOMEN: Normal. OTHER FINDINGS: None. IMPRESSION: No active disease.
[2018-06-19 00:09] VITALS: RESP 20
[2018-06-19 07:49] LABS: BASO # 0.1 K/uL (0.0-0.2); BASO % 0.8 % (0.0-2.0); EOS # 0.2 K/uL (0.0-0.7); HEMOGLOBIN 11.8 g/dL (11.0-16.0); LYMPH # 3.2 K/uL (1.0-4.3); LYMPH % 41.5 % (20.0-40.0); MEAN CELL VOLUME 87.9 fL (81.0-99.0); MEAN CORPUSCULAR HEMOGLOBIN 28.9 pg (27.0-31.0); MEAN CORPUSCULAR HGB CONC 32.9 g/dL (33.0-37.0); MEAN PLATELET VOLUME 10.4 fL (7.2-11.7); MONO # 0.5 K/uL (0.0-0.8); MONO % 6.5 % (0.0-10.0); NEUT # 3.7 K/uL (1.8-7.0); NEUT % 48.2 % (50.0-75.0); RBC 4.08 Mil/uL (3.80-5.20); RED CELL DISTRIBUTION WIDTH 12.4 % (11.5-14.5); WHITE BLOOD COUNT 7.7 K/uL (4.8-10.8)
[2018-06-19 08:01] LABS: ALB/GLOB RATIO 1.2 (1.0-2.1); ALBUMIN 3.5 g/dL (3.5-5.0)
[2018-06-19] MEDS: (Novolin R) Insulin Human Regular 100 units/ml vial SC SCH ×2 (08:09→11:32)
[2018-06-19 08:12] VITALS: BP 155/84; TEMP 97.8; O2SAT 97
--- NOTE | 2018-06-19 11:33 | CARD ---
APPROVED REPORT Date of service: 06/18/2018 EKG Measurement Heart [id number] <Conclusion> Sinus bradycardia Otherwise normal ECG
[2018-06-19 12:05] VITALS: PULSE 75
--- NOTE | 2018-06-19 13:18 | CP.PCM.DIS ---
Provider - Provider Date of Admission: 06/17/18 21:00 Attending physician: Tomy Sy MD Diagnosis - Discharge Diagnosis (1) Chest pain Status: Acute (2) Renal insufficiency Status: Acute (3) Diabetes mellitus type 2 Status: Active Hospital Course - Lab Results Lab Results: Most Recent Lab Values WBC 7.7 K/uL (4.8-10.8) 06/19/18 07:39 RBC 4.08 Mil/uL (3.80-5.20) 06/19/18 07:39 Hgb 11.8 g/dL (11.0-16.0) 06/19/18 07:39 Hct 35.8 % (34.0-47.0) 06/19/18 07:39 MCV 87.9 fL (81.0-99.0) 06/19/18 07:39 MCH 28.9 pg (27.0-31.0) 06/19/18 07:39 MCHC 32.9 g/dL (33.0-37.0) L 06/19/18 07:39 RDW 12.4 % (11.5-14.5) 06/19/18 07:39 Plt Count 180 K/uL (130-400) 06/19/18 07:39 MPV 10.4 fL (7.2-11.7) 06/19/18 07:39 Neut % (Auto) 48.2 % (50.0-75.0) L 06/19/18 07:39 Lymph % (Auto) 41.5 % (20.0-40.0) H 06/19/18 07:39 [place] % (Auto) 6.5 % (0.0-10.0) 06/19/18 07:39 Eos % (Auto) 3.0 % (0.0-4.0) 06/19/18 07:39 Baso % (Auto) 0.8 % (0.0-2.0) 06/19/18 07:39 Neut # (Auto) 3.7 K/uL (1.8-7.0) 06/19/18 07:39 Lymph # (Auto) 3.2 K/uL (1.0-4.3) 06/19/18 07:39 [place] # (Auto) 0.5 K/uL (0.0-0.8) 06/19/18 07:39 Eos # (Auto) 0.2 K/uL (0.0-0.7) 06/19/18 07:39 Baso # (Auto) 0.1 K/uL (0.0-0.2) 06/19/18 07:39 PT 10.4 SECONDS (9.7-12.2) 06/17/18 18:21 INR 1.0 06/17/18 18:21 APTT 31 SECONDS (21-34) 06/17/18 18:21 Sodium 134 mmol/L (132-148) 06/19/18 07:39 Potassium 4.0 mmol/L (3.6-5.2) 06/19/18 07:39 Chloride 101 mmol/L (98-107) 06/19/18 07:39 Carbon Dioxide 29 mmol/L (22-30) 06/19/18 07:39 Anion Gap 8 (10-20) L 06/19/18 07:39 BUN 28 mg/dL (7-17) H 06/19/18 07:39 Creatinine 1.9 mg/dL (0.7-1.2) H 06/19/18 07:39 Est GFR ( Amer) 34 06/19/18 07:39 Est GFR (Non-Af Amer) 28 06/19/18 07:39 POC Glucose (mg/dL) 431 mg/dL (65-110) H* 06/18/18 21:13 Random Glucose 253 mg/dL (65-105) H D 06/19/18 07:39 Calcium 9.0 mg/dl (8.6-10.4) 06/19/18 07:39 Phosphorus 3.2 mg/dL (2.5-4.5) 06/19/18 07:39 Magnesium 2.0 mg/dL (1.6-2.3) 06/19/18 07:39 Total Bilirubin 0.2 mg/dL (0.2-1.3) 06/19/18 07:39 AST 21 U/L (14-36) 06/19/18 07:39 ALT 19 U/L (9-52) 06/19/18 07:39 Alkaline Phosphatase 116 U/L (38-126) 06/19/18 07:39 Total Creatine Kinase 140 U/L (30-135) H 06/17/18 23:18 CK-MB (Mass) 2.22 ng/mL (0.0-3.38) 06/17/18 23:18 Troponin I < 0.0120 ng/mL (0.00-0.120) 06/17/18 23:18 Total Protein 6.3 g/dL (6.3-8.3) 06/19/18 07:39 Albumin 3.5 g/dL (3.5-5.0) 06/19/18 07:39 Globulin 2.8 gm/dL (2.2-3.9) 06/19/18 07:39 Albumin/Globulin Ratio 1.2 (1.0-2.1) 06/19/18 07:39 Urine Color Yellow (YELLOW) 06/17/18 18:55 Urine Clarity Hazy (Clear) 06/17/18 18:55 Urine pH 6.0 (5.0-8.0) 06/17/18 18:55 Ur Specific [place] 1.009 (1.003-1.030) 06/17/18 18:55 Urine Protein 1+ mg/dL (NEGATIVE) H 06/17/18 18:55 Urine Glucose (UA) 3+ mg/dL (Normal) H 06/17/18 18:55 Urine Ketones Negative mg/dL (NEGATIVE) 06/17/18 18:55 Urine Blood Negative (NEGATIVE) 06/17/18 18:55 Urine Nitrate Positive (NEGATIVE) H 06/17/18 18:55 Urine Bilirubin Negative (NEGATIVE) 06/17/18 18:55 Urine Urobilinogen Normal mg/dL (0.2-1.0) 06/17/18 18:55 Ur Leukocyte Esterase Trace [place]/uL (Negative) 06/17/18 18:55 Urine WBC (Auto) 5 /hpf (0-5) 06/17/18 18:55 Urine RBC (Auto) < 1 /hpf (0-3) 06/17/18 18:55 Ur Squamous Epith Cells 2 /hpf (0-5) 06/17/18 18:55 Urine Bacteria Few (<OCC) H 06/17/18 18:55 Discharge Plan - Discharge Medications Prescriptions: Carvedilol [Coreg] 3.125 mg PO BID #60 tab - Follow Up Plan Condition: FAIR Disposition: HOME/ ROUTINE
--- NOTE | 2018-06-20 12:07 | CARD ---
APPROVED REPORT Date of service: 06/17/2018 EKG Measurement Heart [id number] <Conclusion> Normal sinus rhythm Low voltage QRS Junctional ST depression, probably normal Borderline ECG
== END 2018-06-19 16:00 | disposition home or self-care (01) ==
LOC: C.ER 16:50 → C.9E 21:00 → C.6T 22:05
PROVIDERS: ADMIT Internal Medicine; ATTEND Internal Medicine
DX: E11.22 Type 2 diabetes mellitus with diabetic chronic kidney disease (principal); E11.65 Type 2 diabetes mellitus with hyperglycemia; I12.9 Hypertensive chronic kidney disease with stage 1 through stage 4 chronic kidney disease, or unspecified chronic kidney disease; M81.0 Age-related osteoporosis without current pathological fracture; N18.9 Chronic kidney disease, unspecified; Z86.73 Personal history of transient ischemic attack (TIA), and cerebral infarction without residual deficits; E78.00 Pure hypercholesterolemia, unspecified; E28.2 Polycystic ovarian syndrome
CPT/HCPCS: 36415; 70450; 71045; 80053; 81001; 82550; 82553; 82948; 83735; 84100; 84484; 85025; 85610; 85730; 93005; 99285; G0378; J1644